=== PATIENT | female | born 1950 | race African-American/Black ===

== ENCOUNTER 2016-05-14 03:29 | Emergency (ER) | payer OTHER ==
[~2016-05-14] VITALS: Ht 177.8 cm; Wt 104.3 kg
[~2016-05-14 03:29] MED LIST: ALBUAER3 IN; CHLO25TA22 PO; CHOL20007 PO; CLON0.1T PO; CLOP75TA28 PO; HYDR-2652 PO; METO-169 PO; OMEP20CA5 PO; PRA25T PO; PRED-188 PO; TIOTCAP IN
[2016-05-14] MEDS ORDERED: OXYMETAZOLINE HCL 0.05 % NASAL SPRAY 15ML ONE ×2 (06:06→06:30)
[2016-05-14] MEDS ORDERED: hydrALAZINE HCL 20 MG/ML VL IV ONE (06:30)
[2016-05-14 06:49] LABS: Basophils # (auto) 0 uL; Basophils % (auto) 0.7 % (0.0-2.0); Eosinophils # (auto) 0.2 uL; Eosinophils % (auto) 2.7 % (0.0-7.0); Hemoglobin 15.4 g/dL (12.2-16.2); Lymphocytes # (auto) 2.3 uL; Lymphocytes % (auto) 39.1 % (10.0-50.0); Mean Corpuscular Volume 87.4 fL (80.0-100.0); Mean Platelet Volume 11.1 fL (7.4-10.4); Monocytes # (auto) 0.5 uL; Monocytes % (auto) 7.7 % (0.0-12.0); Neutrophils # (auto) 2.9 uL; Neutrophils % (auto) 49.8 % (37.0-80.0); Platelet Count (auto) 155 10^3/uL (140-450); Red Cell Distribution Width 16.9 % (11.6-16.0); SUSPECT VIEW TRANSMISSION; White Blood Cell 5.9 10^3/uL (4.4-10.8)
[2016-05-14 07:08] LABS: Albumin 3.6 g/dL (3.4-5.0); BUN/Creatinine Ratio 19.1; Calcium 8.9 mg/dL (8.5-10.1); Potassium 4.1 mmol/L (3.5-5.1)
[2016-05-14 07:11] LABS: Bilirubin, Total 0.4 mg/dL (0.2-1.0); Total Protein 7.9 g/dL (6.4-8.2)
[2016-05-14 07:22] LABS: INR 1.1 (0.9-1.15); Prothrombin Time 11.3 sec (9.37-12.3)
[2016-05-14] MEDS ORDERED: cloNIDine HCL 0.1 MG TAB PO ONE (07:30)
[2016-05-14 07:36] VITALS: BP 180/99
== END 2016-05-14 08:00 | disposition home or self-care (01) ==
LOC: ER 03:37
DX: R04.0 Epistaxis (principal); I10 Essential (primary) hypertension; I48.91 Unspecified atrial fibrillation; J44.9 Chronic obstructive pulmonary disease, unspecified; Z79.899 Other long term (current) drug therapy; Z79.01 Long term (current) use of anticoagulants; F17.210 Nicotine dependence, cigarettes, uncomplicated
CPT/HCPCS: 36415; 80053; 85025; 85049; 85610; 96374; 99284; J0360

== ENCOUNTER 2016-05-14 20:43 | Inpatient (IN) | payer OTHER ==
[~2016-05-14] VITALS: Ht 177.8 cm; Wt 110.0 kg
[2016-05-14] MEDS ORDERED: cloNIDine HCL 0.1 MG TAB PO ONE (21:30)
[2016-05-14] MEDS ORDERED: ONDANSETRON HCL 4 MG/2 ML VIAL IV ONE (21:30)
[2016-05-14] MEDS ORDERED: MORPHINE SULF INJ 2 MG/ML SYRINGE 1ML IV ONE (21:30)
[2016-05-14 21:31] LABS: Basophils # (auto) 0.1 uL; Basophils % (auto) 1.2 % (0.0-2.0); Eosinophils # (auto) 0.1 uL; Eosinophils % (auto) 2.5 % (0.0-7.0); Hemoglobin 15.4 g/dL (12.2-16.2); Lymphocytes # (auto) 1.7 uL; Lymphocytes % (auto) 32.7 % (10.0-50.0); Mean Corpuscular Hemoglobin 27.8 pg (28.0-32.0); Mean Corpuscular Hgb Conc. 31.5 g/dL (32.0-36.0); Mean Corpuscular Volume 88.3 fL (80.0-100.0); Mean Platelet Volume 10.9 fL (7.4-10.4); Monocytes # (auto) 0.4 uL; Monocytes % (auto) 8.1 % (0.0-12.0); Neutrophils # (auto) 2.8 uL; Neutrophils % (auto) 55.5 % (37.0-80.0); Platelet Count (auto) 158 10^3/uL (140-450); Red Cell Distribution Width 16.8 % (11.6-16.0); SUSPECT VIEW TRANSMISSION; White Blood Cell 5.1 10^3/uL (4.4-10.8)
[2016-05-14 21:49] LABS: Albumin 3.4 g/dL (3.4-5.0); BUN/Creatinine Ratio 19.5; Calcium 8.7 mg/dL (8.5-10.1); Potassium 3.8 mmol/L (3.5-5.1)
[2016-05-14 21:52] LABS: Bilirubin, Total 0.3 mg/dL (0.2-1.0); Total Protein 7.8 g/dL (6.4-8.2)
[2016-05-14 22:05] LABS: INR 1.1 (0.9-1.15); Prothrombin Time 11.3 sec (9.37-12.3)
[2016-05-14] MEDS ORDERED: MORPHINE SULF INJ 2 MG/ML SYRINGE 1ML IV PRN (22:30)
[2016-05-14] MEDS ORDERED: NITROGLYCERIN 0.4 MG SL TAB SL PRN (22:30)
[2016-05-14] MEDS ORDERED: hydrALAZINE HCL 20 MG/ML VL IV PRN (22:30)
[2016-05-15] VITALS (7 sets, daily range): BP systolic 102–187; BP diastolic 65–99
[2016-05-15 05:49] LABS: Basophils # (auto) 0 uL; Basophils % (auto) 0.8 % (0.0-2.0); Eosinophils # (auto) 0.2 uL; Eosinophils % (auto) 3.4 % (0.0-7.0); Hematocrit 46.2 % (36.0-46.0); Hemoglobin 14.7 g/dL (12.2-16.2); Lymphocytes # (auto) 1.6 uL; Lymphocytes % (auto) 31.7 % (10.0-50.0); Mean Corpuscular Hemoglobin 27.8 pg (28.0-32.0); Mean Corpuscular Hgb Conc. 31.8 g/dL (32.0-36.0); Mean Corpuscular Volume 87.5 fL (80.0-100.0); Mean Platelet Volume 11.7 fL (7.4-10.4); Monocytes # (auto) 0.4 uL; Monocytes % (auto) 8.7 % (0.0-12.0); Neutrophils # (auto) 2.8 uL; Neutrophils % (auto) 55.4 % (37.0-80.0); Platelet Count (auto) 155 10^3/uL (140-450); Red Cell Distribution Width 16.8 % (11.6-16.0); SUSPECT VIEW TRANSMISSION; White Blood Cell 5.1 10^3/uL (4.4-10.8)
[2016-05-15] MEDS ORDERED: PATIENTS OWN MEDICATION (Albuterol Sulfate (Ventolin Mdi) 90 MCG) IN SCH ×2 (06:00)
[2016-05-15 06:18] LABS: Albumin 3.2 g/dL (3.4-5.0); BUN/Creatinine Ratio 20.7; Calcium 8.6 mg/dL (8.5-10.1); Potassium 4.1 mmol/L (3.5-5.1)
[2016-05-15 06:20] LABS: Bilirubin, Total 0.5 mg/dL (0.2-1.0); Total Protein 6.9 g/dL (6.4-8.2)
[2016-05-15] MEDS ORDERED: PATIENTS OWN MEDICATION (Tiotropium Bromide Monohydrate (Spiriva Handihaler) 18 MCG) IN SCH (10:00)
[2016-05-15] MEDS ORDERED: OMEPRAZOLE 20MG/10ML ORAL SUSP PO SCH (10:00)
[2016-05-15] MEDS: PANTOPRAZOLE 40 MG TAB PO SCH (10:03)
[2016-05-15] MEDS: cloNIDine HCL 0.1 MG TAB PO SCH ×2 (10:03→22:33)
[2016-05-15] MEDS: METOPROLOL SUCCINATE XL 50 MG TAB PO SCH (10:04)
[2016-05-15] MEDS: ALBUTEROL SULF 2.5 MG/0.5ML(0.5%) NEB SOLN NEB SCH ×3 (11:23→20:07)
[2016-05-15] MEDS: IPRATROPIUM BROM 0.5 MG/2.5ML INH SOL NEB SCH ×3 (11:23→20:07)
[2016-05-15] MEDS ORDERED: IPRATROPIUM BROM 0.5 MG/2.5ML INH SOL NEB SCH (12:00)
[2016-05-15] MEDS ORDERED: ALBUTEROL SULF 2.5 MG/0.5ML(0.5%) NEB SOLN NEB SCH (12:00)
[2016-05-15] MEDS: PRAMIPEXOLE DIHYDROCHLORIDE MO 0.25 MG TAB PO SCH (15:02)
[2016-05-15] MEDS: hydrALAZINE HCL 20 MG/ML VL IV PRN (18:26)
[2016-05-16] MEDS ORDERED: hydrALAZINE HCL 20 MG/ML VL IV ONE
[2016-05-16] MEDS: IPRATROPIUM BROM 0.5 MG/2.5ML INH SOL NEB SCH ×3 (01:06→13:30)
[2016-05-16] MEDS: ALBUTEROL SULF 2.5 MG/0.5ML(0.5%) NEB SOLN NEB SCH ×3 (01:06→13:30)
[2016-05-16] MEDS ORDERED: MORPHINE SULF INJ 2 MG/ML SYRINGE 1ML IV PRN ×2 (01:15)
[2016-05-16] MEDS ORDERED: NITROGLYCERIN 0.4 MG SL TAB SL PRN ×2 (01:15)
[2016-05-16 02:50] VITALS: BP 187/99
[2016-05-16 05:41] LABS: Basophils # (auto) 0 uL; Basophils % (auto) 0.3 % (0.0-2.0); Eosinophils # (auto) 0.2 uL; Eosinophils % (auto) 2.2 % (0.0-7.0); Hematocrit 47.3 % (36.0-46.0); Hemoglobin 14.9 g/dL (12.2-16.2); Lymphocytes # (auto) 1.8 uL; Lymphocytes % (auto) 25.3 % (10.0-50.0); Mean Corpuscular Hemoglobin 28.1 pg (28.0-32.0); Mean Corpuscular Hgb Conc. 31.5 g/dL (32.0-36.0); Mean Corpuscular Volume 89.3 fL (80.0-100.0); Mean Platelet Volume 12.2 fL (7.4-10.4); Monocytes # (auto) 0.4 uL; Neutrophils # (auto) 4.8 uL; Neutrophils % (auto) 67.2 % (37.0-80.0); Platelet Count (auto) 150 10^3/uL (140-450); Red Cell Distribution Width 17.2 % (11.6-16.0); SUSPECT VIEW TRANSMISSION; White Blood Cell 7.1 10^3/uL (4.4-10.8)
[2016-05-16 05:47] VITALS: BP 185/102
[2016-05-16] MEDS: hydrALAZINE HCL 20 MG/ML VL IV PRN (05:48)
[2016-05-16] MEDS ORDERED: SODIUM CHLOR 0.9% PF (SALINE LOCK) 10ML VIAL IV SCH (06:00)
[2016-05-16 06:22] LABS: Potassium 4.5 mmol/L (3.5-5.1)
[2016-05-16 06:29] LABS: Albumin 3.1 g/dL (3.4-5.0); Bilirubin, Total 0.5 mg/dL (0.2-1.0); Calcium 8.3 mg/dL (8.5-10.1); Total Protein 7.2 g/dL (6.4-8.2)
[2016-05-16 09:00] VITALS: BP 161/82
[2016-05-16] MEDS: PRAMIPEXOLE DIHYDROCHLORIDE MO 0.25 MG TAB PO SCH (09:09)
[2016-05-16] MEDS: PANTOPRAZOLE 40 MG TAB PO SCH (09:09)
[2016-05-16] MEDS: cloNIDine HCL 0.1 MG TAB PO SCH (09:10)
[2016-05-16] MEDS: METOPROLOL SUCCINATE XL 50 MG TAB PO SCH (09:10)
[2016-05-16] MEDS ORDERED: ONDANSETRON HCL 4 MG/2 ML VIAL IV PRN (09:30)
[2016-05-16] MEDS ORDERED: ACETAMINOPHEN 500 MG TAB PO PRN (09:30)
[2016-05-16] MEDS ORDERED: HYDROcodone-ACET 5/325MG TAB PO PRN (09:45)
[2016-05-16] MEDS ORDERED: MORPHINE SULFATE 4 MG/ML SYRG IV PRN (09:45)
[2016-05-16 13:00] VITALS: BP 137/80
[2016-05-16 13:33] VITALS: BP 135/77
[2016-05-16 16:31] VITALS: BP 149/90
== END 2016-05-16 16:45 | disposition home or self-care (01) | DRG 305 ==
LOC: ER 20:43 → TELE-WESTW 20:44 → WEST WING 05-15 11:35 → TELE-WESTW 05-16 01:35
PROVIDERS: ADMIT Internal Medicine; ATTEND Internal Medicine
DX: I16.0 Hypertensive urgency (principal); N18.4 Chronic kidney disease, stage 4 (severe); J96.11 Chronic respiratory failure with hypoxia; I48.91 Unspecified atrial fibrillation; J44.9 Chronic obstructive pulmonary disease, unspecified; I50.9 Heart failure, unspecified; F17.210 Nicotine dependence, cigarettes, uncomplicated; I13.0 Hypertensive heart and chronic kidney disease with heart failure and stage 1 through stage 4 chronic kidney disease, or unspecified chronic kidney disease; R04.0 Epistaxis; G25.81 Restless legs syndrome; Z91.19 Patient's noncompliance with other medical treatment and regimen; M25.532 Pain in left wrist; I71.2 Thoracic aortic aneurysm, without rupture; K21.9 Gastro-esophageal reflux disease without esophagitis; Z82.3 Family history of stroke; Z82.49 Family history of ischemic heart disease and other diseases of the circulatory system; Z83.3 Family history of diabetes mellitus; Z80.42 Family history of malignant neoplasm of prostate; Z86.73 Personal history of transient ischemic attack (TIA), and cerebral infarction without residual deficits; I25.2 Old myocardial infarction; Z95.0 Presence of cardiac pacemaker; Z88.6 Allergy status to analgesic agent; Z91.14 Patient's other noncompliance with medication regimen; Z79.899 Other long term (current) drug therapy
CPT/HCPCS: 36415; 71010; 73110; 80053; 84484; 85025; 85049; 85610; 85730; 93005; 94640; 94761; 96374; 96375; J2405

== ENCOUNTER 2016-11-27 10:56 | Inpatient (IN) | payer OTHER ==
[~2016-11-27] VITALS: Ht 177.8 cm; Wt 114.0 kg
[2016-11-27] VITALS (15 sets, daily range): BP systolic 110–148; BP diastolic 55–90
[~2016-11-27 10:56] MED LIST changes: -OMEP20CA5 PO; +OMEP20CA74 PO
[2016-11-27] MEDS ORDERED: SODIUM CHLORIDE 0.9% 1,000 ML IV ONE (11:06)
[2016-11-27] MEDS ORDERED: ASPirin 81 mg TAB PO ONE (11:15)
[2016-11-27 11:28] LABS: Basophils # (auto) 0 uL; Basophils % (auto) 0.6 % (0.0-2.0); CONDITION Y; Eosinophils # (auto) 0.2 uL; Hematocrit 47.3 % (36.0-46.0); Hemoglobin 15.6 g/dL (12.2-16.2); Lymphocytes # (auto) 2.1 uL; Lymphocytes % (auto) 35.6 % (10.0-50.0); Mean Corpuscular Volume 88.1 fL (80.0-100.0); Mean Platelet Volume 11.4 fL (7.4-10.4); Monocytes # (auto) 0.3 uL; Monocytes % (auto) 5.4 % (0.0-12.0); Neutrophils # (auto) 3.2 uL; Neutrophils % (auto) 55.4 % (37.0-80.0); Platelet Count (auto) 156 10^3/uL (140-450); Red Cell Distribution Width 16.5 % (11.6-16.0); White Blood Cell 5.8 10^3/uL (4.4-10.8)
[2016-11-27] MEDS ORDERED: MORPHINE SULFATE 4 MG/ML SYRG IV ONE (11:30)
[2016-11-27] MEDS ORDERED: LORazepam 2MG/ML-1ML VIAL IV ONE (11:30)
[2016-11-27] MEDS ORDERED: ONDANSETRON HCL 4 MG/2 ML VIAL IV ONE (11:30)
[2016-11-27 11:40] LABS: INR 1.24 (0.9-1.15); Partial Thromboplastin Time 54.1 sec (22.64-33.71)
[2016-11-27 11:44] LABS: Prothrombin Time 13.6 sec (9.37-12.3)
[2016-11-27 11:53] LABS: Albumin 3.3 g/dL (3.4-5.0); BUN/Creatinine Ratio 14.1; Bilirubin, Total 0.3 mg/dL (0.2-1.0); Calcium 8.3 mg/dL (8.5-10.1); Potassium 4.2 mmol/L (3.5-5.1); Total Protein 7.7 g/dL (6.4-8.2)
[2016-11-27] MEDS ORDERED: METOPROLOL TARTRATE 25 MG TAB ONE (12:16)
[2016-11-27] MEDS ORDERED: METOPROLOL TARTRATE 25 MG TAB PO ONE (12:30)
[2016-11-27] MEDS ORDERED: NIFE90TA30 PO (12:36)
[2016-11-27] MEDS ORDERED: DABI75CA3 PO (12:36)
[2016-11-27] MEDS ORDERED: AMIO200T33 PO (12:37)
[2016-11-27] MEDS ORDERED: NITROGLYCERIN 0.4 MG SL TAB SL PRN (13:00)
[2016-11-27] MEDS ORDERED: MORPHINE SULF INJ 2 MG/ML SYRINGE 1ML IV PRN (13:00)
[2016-11-27] MEDS ORDERED: AMIODARONE HCL 150 MG in D5W 5% 100 ML IV ONE (13:00)
[2016-11-27] MEDS ORDERED: AMIODARONE HCL 900 MG in DEXTROSE 500 ML IV SCH ×2 (13:03→19:03)
[2016-11-27] MEDS ORDERED: ENOXAPARIN SOD 30 MG/0.3 ML SYRINGE SC SCH (13:38)
[2016-11-27 13:40] LABS: B-Type Natriuretic Peptide 473.8 pg/mL (0-100)
[2016-11-27 13:45] LABS: Cholesterol 142 mg/dL (< 200); HDL Cholesterol 79 mg/dL (40-59); LDL Cholesterol 43 mg/dL (< 100); Triglycerides 108 mg/dL (< 150)
[2016-11-27] MEDS ORDERED: PANTOPRAZOLE 40 MG TAB PO ONE ×2 (14:45→15:00)
[2016-11-27] MEDS ORDERED: ALBUTEROL SULF 2.5 MG/0.5ML(0.5%) NEB SOLN NEB PRN (14:45)
[2016-11-27] MEDS ORDERED: METOPROLOL TARTRATE 50 MG TAB PO ONE ×2 (14:45→15:00)
[2016-11-27] MEDS ORDERED: ASPirin-EC 81 mg tab PO ONE (15:00)
[2016-11-27] MEDS ORDERED: APIXABAN 2.5 MG TAB PO ONE (15:00)
[2016-11-27] MEDS ORDERED: FUROSEMIDE 100 MG/10ML VIAL IV ONE (17:30)
[2016-11-27] MEDS ORDERED: ALBUTEROL SULF 2.5 MG/0.5ML(0.5%) NEB SOLN NEB SCH (18:00)
[2016-11-27] MEDS ORDERED: IPRATROPIUM BROM 0.5 MG/2.5ML INH SOL NEB SCH (18:00)
[2016-11-27] MEDS: IPRATROPIUM BROM 0.5 MG/2.5ML INH SOL NEB SCH (18:00)
[2016-11-27] MEDS ORDERED: PRAM0.5T PO (21:41)
[2016-11-27] MEDS ORDERED: TERA2CAP45 PO (21:41)
[2016-11-27] MEDS ORDERED: HYDR-2652 PO (21:41)
[2016-11-27] MEDS ORDERED: SPIR100T21 PO (21:41)
[2016-11-27] MEDS: APIXABAN 5 MG TAB PO SCH (21:53)
[2016-11-27] MEDS: METOPROLOL TARTRATE 50 MG TAB PO SCH (21:53)
[2016-11-27] MEDS ORDERED: ATORVASTATIN 20 MG TAB PO SCH (22:00)
[2016-11-27] MEDS ORDERED: APIXABAN 2.5 MG TAB PO SCH (22:00)
[2016-11-28] VITALS (30 sets, daily range): BP systolic 108–161; BP diastolic 52–107
[2016-11-28 04:45] LABS: Basophils # (auto) 0 uL; Basophils % (auto) 0.5 % (0.0-2.0); CONDITION Y; Eosinophils # (auto) 0.2 uL; Eosinophils % (auto) 3.5 % (0.0-7.0); Hematocrit 45.5 % (36.0-46.0); Hemoglobin 14.5 g/dL (12.2-16.2); Lymphocytes # (auto) 1.7 uL; Lymphocytes % (auto) 26.7 % (10.0-50.0); Mean Corpuscular Hemoglobin 28.6 pg (28.0-32.0); Mean Corpuscular Hgb Conc. 31.8 g/dL (32.0-36.0); Mean Corpuscular Volume 89.9 fL (80.0-100.0); Mean Platelet Volume 11.6 fL (7.4-10.4); Monocytes # (auto) 0.4 uL; Monocytes % (auto) 6.4 % (0.0-12.0); Neutrophils % (auto) 62.9 % (37.0-80.0); Platelet Count (auto) 145 10^3/uL (140-450); Red Cell Distribution Width 16.8 % (11.6-16.0); White Blood Cell 6.4 10^3/uL (4.4-10.8)
[2016-11-28] MEDS ORDERED: FUROSEMIDE 100 MG/10ML VIAL IV SCH (06:00)
[2016-11-28] MEDS: IPRATROPIUM BROM 0.5 MG/2.5ML INH SOL NEB SCH ×4 (06:10→23:54)
[2016-11-28 06:24] LABS: BUN/Creatinine Ratio 15.1; Calcium 7.7 mg/dL (8.5-10.1); Potassium 4.5 mmol/L (3.5-5.1)
[2016-11-28] MEDS: ASPirin-EC 81 mg tab PO SCH (09:58)
[2016-11-28] MEDS: AMIODARONE HCL 200 MG TAB PO SCH ×2 (09:58→21:56)
[2016-11-28] MEDS: APIXABAN 5 MG TAB PO SCH ×2 (09:58→21:56)
[2016-11-28] MEDS: METOPROLOL TARTRATE 50 MG TAB PO SCH ×2 (09:59→21:56)
[2016-11-28] MEDS: PANTOPRAZOLE 40 MG TAB PO SCH (09:59)
[2016-11-28] MEDS: FUROSEMIDE 100 MG/10ML VIAL IV SCH (18:16)
[2016-11-28] MEDS: ATORVASTATIN 20 MG TAB PO SCH (21:56)
[2016-11-29 05:05] VITALS: BP 150/82
[2016-11-29] MEDS: FUROSEMIDE 100 MG/10ML VIAL IV SCH (06:14)
[2016-11-29] MEDS: IPRATROPIUM BROM 0.5 MG/2.5ML INH SOL NEB SCH ×4 (06:51→23:41)
[2016-11-29 07:09] LABS: Potassium 4.2 mmol/L (3.5-5.1)
[2016-11-29 07:15] LABS: BUN/Creatinine Ratio 17.7; Calcium 8.5 mg/dL (8.5-10.1)
[2016-11-29 07:33] VITALS: BP 143/101
[2016-11-29] MEDS ORDERED: ADENOSINE 110 MG in GIVE UN-DILUTED 0 ML IV ONE (08:45)
[2016-11-29] MEDS ORDERED: AMINOPHYLLINE 250 MG/10 ML VL IV ONE (08:45)
[2016-11-29] MEDS: METOPROLOL TARTRATE 50 MG TAB PO SCH ×3 (10:00→21:24)
[2016-11-29] MEDS: AMIODARONE HCL 200 MG TAB PO SCH ×3 (10:00→21:23)
[2016-11-29] MEDS: ASPirin-EC 81 mg tab PO SCH ×2 (10:00→16:50)
[2016-11-29] MEDS: PANTOPRAZOLE 40 MG TAB PO SCH ×2 (10:00→16:50)
[2016-11-29] MEDS: APIXABAN 5 MG TAB PO SCH ×3 (10:00→21:21)
[2016-11-29] MEDS ORDERED: ALBUTEROL SULF 2.5 MG/0.5ML(0.5%) NEB SOLN ONE (11:17)
[2016-11-29] MEDS ORDERED: IPRATROPIUM BROM 0.5 MG/2.5ML INH SOL ONE (11:18)
[2016-11-29 16:47] VITALS: BP 165/105
[2016-11-29] MEDS: ATORVASTATIN 20 MG TAB PO SCH (21:21)
[2016-11-29] MEDS: PRAMIPEXOLE DIHYDROCHLORIDE MO 0.25 MG TAB PO SCH (21:22)
[2016-11-29] MEDS: cloNIDine HCL 0.1 MG TAB PO SCH (21:23)
[2016-11-29] MEDS: DOXAZOSIN MESYL 2 MG TAB PO SCH (21:23)
[2016-11-29 21:32] VITALS: BP 169/103
[2016-11-30] MEDS: cloNIDine HCL 0.1 MG TAB PO PRN (00:22)
[2016-11-30 05:08] VITALS: BP 135/79
[2016-11-30 05:29] LABS: BUN/Creatinine Ratio 18.2; Calcium 8.5 mg/dL (8.5-10.1); Potassium 4.1 mmol/L (3.5-5.1)
[2016-11-30] MEDS: IPRATROPIUM BROM 0.5 MG/2.5ML INH SOL NEB SCH ×3 (06:43→19:15)
[2016-11-30] MEDS: cloNIDine HCL 0.1 MG TAB PO SCH ×2 (09:03→21:53)
[2016-11-30] MEDS: AMIODARONE HCL 200 MG TAB PO SCH ×2 (09:03→21:52)
[2016-11-30] MEDS: PANTOPRAZOLE 40 MG TAB PO SCH (09:04)
[2016-11-30] MEDS: APIXABAN 5 MG TAB PO SCH ×2 (09:04→21:49)
[2016-11-30] MEDS: ASPirin-EC 81 mg tab PO SCH (09:04)
[2016-11-30] MEDS: METOPROLOL TARTRATE 50 MG TAB PO SCH ×2 (09:05→21:51)
[2016-11-30 09:25] VITALS: BP 165/111
[2016-11-30 13:00] VITALS: BP 143/91
[2016-11-30 20:00] VITALS: BP 179/97
[2016-11-30] MEDS: DOXAZOSIN MESYL 2 MG TAB PO SCH (21:49)
[2016-11-30] MEDS: ATORVASTATIN 20 MG TAB PO SCH (21:51)
[2016-11-30] MEDS: PRAMIPEXOLE DIHYDROCHLORIDE MO 0.25 MG TAB PO SCH (21:54)
[2016-11-30 22:00] VITALS: BP 179/97
[2016-12-01] VITALS (7 sets, daily range): BP systolic 140–160; BP diastolic 83–98
[2016-12-01] MEDS: IPRATROPIUM BROM 0.5 MG/2.5ML INH SOL NEB SCH ×4 (00:49→19:23)
[2016-12-01 06:51] LABS: BUN/Creatinine Ratio 21.3; Calcium 8.3 mg/dL (8.5-10.1); Potassium 4.4 mmol/L (3.5-5.1)
[2016-12-01] MEDS: cloNIDine HCL 0.1 MG TAB PO SCH ×3 (10:42→23:11)
[2016-12-01] MEDS: APIXABAN 5 MG TAB PO SCH ×2 (10:42→22:17)
[2016-12-01] MEDS: PANTOPRAZOLE 40 MG TAB PO SCH (10:42)
[2016-12-01] MEDS: ASPirin-EC 81 mg tab PO SCH (10:42)
[2016-12-01] MEDS: AMIODARONE HCL 200 MG TAB PO SCH ×2 (10:42→22:17)
[2016-12-01] MEDS: METOPROLOL TARTRATE 50 MG TAB PO SCH ×2 (10:43→22:00)
[2016-12-01] MEDS: cloNIDine HCL 0.1 MG TAB PO PRN (16:27)
[2016-12-01] MEDS ORDERED: amLODIPine BESYLATE 5 MG TAB PO ONE (18:15)
[2016-12-01] MEDS: DOXAZOSIN MESYL 2 MG TAB PO SCH (22:16)
[2016-12-01] MEDS: PRAMIPEXOLE DIHYDROCHLORIDE MO 0.25 MG TAB PO SCH (22:18)
[2016-12-01] MEDS: ATORVASTATIN 20 MG TAB PO SCH (22:18)
[2016-12-02] MEDS: cloNIDine HCL 0.1 MG TAB PO PRN ×4 (02:37→14:54)
[2016-12-02 05:00] VITALS: BP 163/99
[2016-12-02] MEDS: IPRATROPIUM BROM 0.5 MG/2.5ML INH SOL NEB SCH ×3 (06:35→20:11)
[2016-12-02 08:00] VITALS: BP 160/91
[2016-12-02 09:00] VITALS: BP 160/91
[2016-12-02] MEDS: APIXABAN 5 MG TAB PO SCH ×2 (09:26→22:00)
[2016-12-02] MEDS: cloNIDine HCL 0.1 MG TAB PO SCH ×2 (09:26→22:00)
[2016-12-02] MEDS: AMIODARONE HCL 200 MG TAB PO SCH ×2 (09:37→22:00)
[2016-12-02] MEDS: ASPirin-EC 81 mg tab PO SCH (09:37)
[2016-12-02] MEDS: amLODIPine BESYLATE 5 MG TAB PO SCH ×2 (09:38→11:02)
[2016-12-02] MEDS: PANTOPRAZOLE 40 MG TAB PO SCH (09:38)
[2016-12-02] MEDS: METOPROLOL TARTRATE 50 MG TAB PO SCH ×3 (09:38→22:00)
[2016-12-02 16:48] VITALS: BP 166/108
[2016-12-02] MEDS: hydrALAZINE HCL 25 MG TAB PO SCH (17:54)
[2016-12-02 19:30] VITALS: BP 127/84
[2016-12-02] MEDS ORDERED: IPRATROPIUM BROM 0.5 MG/2.5ML INH SOL ONE (20:05)
[2016-12-02 22:00] VITALS: BP 157/91
[2016-12-02] MEDS: DOXAZOSIN MESYL 2 MG TAB PO SCH (22:00)
[2016-12-02] MEDS: PRAMIPEXOLE DIHYDROCHLORIDE MO 0.25 MG TAB PO SCH (22:00)
[2016-12-02] MEDS: ATORVASTATIN 20 MG TAB PO SCH (22:00)
[2016-12-03] VITALS (14 sets, daily range): BP systolic 129–187; BP diastolic 84–127
[2016-12-03] MEDS: cloNIDine HCL 0.1 MG TAB PO PRN ×2 (01:39→10:38)
[2016-12-03] MEDS: hydrALAZINE HCL 25 MG TAB PO SCH ×5 (06:10→23:53)
[2016-12-03] MEDS: cloNIDine HCL 0.1 MG TAB PO SCH ×2 (06:10→21:42)
[2016-12-03 06:29] LABS: Basophils # (auto) 0 uL; Basophils % (auto) 0.6 % (0.0-2.0); CONDITION Y; Eosinophils # (auto) 0.3 uL; Eosinophils % (auto) 5.3 % (0.0-7.0); Hematocrit 46.2 % (36.0-46.0); Hemoglobin 15.3 g/dL (12.2-16.2); Lymphocytes # (auto) 2.1 uL; Lymphocytes % (auto) 42.2 % (10.0-50.0); Mean Corpuscular Hemoglobin 29.1 pg (28.0-32.0); Mean Corpuscular Hgb Conc. 33.2 g/dL (32.0-36.0); Mean Corpuscular Volume 87.6 fL (80.0-100.0); Mean Platelet Volume 11.8 fL (7.4-10.4); Monocytes # (auto) 0.4 uL; Monocytes % (auto) 7.4 % (0.0-12.0); Neutrophils # (auto) 2.2 uL; Neutrophils % (auto) 44.5 % (37.0-80.0); Platelet Count (auto) 161 10^3/uL (140-450); Red Cell Distribution Width 16.3 % (11.6-16.0); White Blood Cell 4.9 10^3/uL (4.4-10.8)
[2016-12-03] MEDS: IPRATROPIUM BROM 0.5 MG/2.5ML INH SOL NEB SCH ×3 (06:30→11:35)
[2016-12-03 06:38] LABS: INR 1.05 (0.9-1.15); Prothrombin Time 11.4 sec (9.37-12.3)
[2016-12-03 06:51] LABS: Potassium 4.5 mmol/L (3.5-5.1)
[2016-12-03 06:56] LABS: BUN/Creatinine Ratio 20.4; Calcium 8.4 mg/dL (8.5-10.1); Magnesium 2.5 mg/dL (1.6-2.6)
[2016-12-03 06:59] LABS: Bilirubin, Total 0.4 mg/dL (0.2-1.0); Total Protein 7.2 g/dL (6.4-8.2)
[2016-12-03] MEDS: ASPirin-EC 81 mg tab PO SCH (09:28)
[2016-12-03] MEDS: AMIODARONE HCL 200 MG TAB PO SCH ×2 (09:28→21:42)
[2016-12-03] MEDS: APIXABAN 5 MG TAB PO SCH ×2 (09:29→21:42)
[2016-12-03] MEDS: METOPROLOL TARTRATE 50 MG TAB PO SCH ×2 (09:29→21:43)
[2016-12-03] MEDS: PANTOPRAZOLE 40 MG TAB PO SCH (09:30)
[2016-12-03] MEDS ORDERED: amLODIPine BESYLATE 5 MG TAB PO SCH (10:00)
[2016-12-03] MEDS ORDERED: NIFEdipine ER 30 MG TAB PO ONE (13:00)
[2016-12-03] MEDS ORDERED: IPRATROPIUM BROM 0.5 MG/2.5ML INH SOL ONE (19:50)
[2016-12-03] MEDS: DOXAZOSIN MESYL 2 MG TAB PO SCH (21:41)
[2016-12-03] MEDS: PRAMIPEXOLE DIHYDROCHLORIDE MO 0.25 MG TAB PO SCH ×2 (21:43→21:59)
[2016-12-03] MEDS: ATORVASTATIN 20 MG TAB PO SCH (21:43)
[2016-12-04 04:49] VITALS: BP 105/65
[2016-12-04] MEDS: hydrALAZINE HCL 25 MG TAB PO SCH ×2 (05:31→12:00)
[2016-12-04] MEDS: IPRATROPIUM BROM 0.5 MG/2.5ML INH SOL NEB SCH ×2 (06:23→11:20)
[2016-12-04 08:35] VITALS: BP 124/71
[2016-12-04 09:48] VITALS: BP 124/71
[2016-12-04] MEDS ORDERED: NIFEdipine ER 30 MG TAB PO SCH (10:00)
[2016-12-04] MEDS: METOPROLOL TARTRATE 50 MG TAB PO SCH (10:00)
[2016-12-04] MEDS: PANTOPRAZOLE 40 MG TAB PO SCH (10:34)
[2016-12-04] MEDS: ASPirin-EC 81 mg tab PO SCH (10:35)
[2016-12-04] MEDS: AMIODARONE HCL 200 MG TAB PO SCH (10:35)
[2016-12-04] MEDS: DOXAZOSIN MESYL 2 MG TAB PO SCH (10:35)
[2016-12-04] MEDS: APIXABAN 5 MG TAB PO SCH (10:36)
[2016-12-04] MEDS: cloNIDine HCL 0.1 MG TAB PO SCH (10:36)
[2016-12-04 12:49] VITALS: BP 120/87
== END 2016-12-04 18:30 | disposition home or self-care (01) | DRG 291 ==
LOC: ER 11:00 → TELE 11:01 → ICU WEST 15:56 → TELE-WESTW 11-28 15:13
PROVIDERS: ADMIT Nurse Practitioner Family; ATTEND Internal Medicine
DX: I13.0 Hypertensive heart and chronic kidney disease with heart failure and stage 1 through stage 4 chronic kidney disease, or unspecified chronic kidney disease (principal); I50.33 Acute on chronic diastolic (congestive) heart failure; N18.4 Chronic kidney disease, stage 4 (severe); J96.11 Chronic respiratory failure with hypoxia; G25.81 Restless legs syndrome; K21.9 Gastro-esophageal reflux disease without esophagitis; J44.9 Chronic obstructive pulmonary disease, unspecified; I16.0 Hypertensive urgency; I48.91 Unspecified atrial fibrillation; I25.10 Atherosclerotic heart disease of native coronary artery without angina pectoris; I25.2 Old myocardial infarction; Z82.3 Family history of stroke; Z82.49 Family history of ischemic heart disease and other diseases of the circulatory system; Z83.3 Family history of diabetes mellitus; Z86.73 Personal history of transient ischemic attack (TIA), and cerebral infarction without residual deficits; Z87.891 Personal history of nicotine dependence; Z88.8 Allergy status to other drugs, medicaments and biological substances; Z71.89 Other specified counseling; Z80.42 Family history of malignant neoplasm of prostate; Z90.89 Acquired absence of other organs; Z91.19 Patient's noncompliance with other medical treatment and regimen; Z95.0 Presence of cardiac pacemaker
CPT/HCPCS: 36415; 71010; 78452; 80048; 80053; 80061; 83036; 83735; 83880; 84443; 84484; 85025; 85379; 85610; 85730; 87081; 93005; 93017; 93306; 94640; 96361; 96365; 96375; J0153; J2405; J7060

== ENCOUNTER → 2016-12-24 | Outpatient (CLI) | payer OTHER ==
[~2016-12-24] MED LIST changes: +AMIO200T33 PO; -CLOP75TA28 PO; +DABI75CA3 PO; +NIFE90TA30 PO; -PRA25T PO; +PRAM0.5T PO; -PRED-188 PO; +SPIR100T21 PO; +TERA2CAP45 PO
== END | disposition home or self-care (01) ==
LOC: XY 09:50
PROVIDERS: ATTEND Internal Medicine
DX: N28.1 Cyst of kidney, acquired (principal); I13.0 Hypertensive heart and chronic kidney disease with heart failure and stage 1 through stage 4 chronic kidney disease, or unspecified chronic kidney disease; I50.33 Acute on chronic diastolic (congestive) heart failure; N18.4 Chronic kidney disease, stage 4 (severe)
CPT/HCPCS: 93923

== ENCOUNTER → 2017-01-17 | Outpatient (CLI) | payer OTHER ==
[2017-01-17 14:47] LABS: Basophils # (auto) 0.1 uL; Basophils % (auto) 1.2 % (0.0-2.0); Eosinophils # (auto) 0.2 uL; Eosinophils % (auto) 3.2 % (0.0-7.0); Hematocrit 50.3 % (36.0-46.0); Hemoglobin 16.6 g/dL (12.2-16.2); Lymphocytes % (auto) 39.9 % (10.0-50.0); Mean Corpuscular Hemoglobin 29.2 pg (28.0-32.0); Mean Corpuscular Volume 88.5 fL (80.0-100.0); Mean Platelet Volume 10.4 fL (6.9-10.8); Monocytes # (auto) 0.3 uL; Neutrophils # (auto) 2.4 uL; Neutrophils % (auto) 48.7 % (37.0-80.0); Nucleated Red Blood Cells % 0.1 %; Platelet Count (auto) 113 10^3/uL (140-450); Red Cell Distribution Width 16.7 % (11.8-14.3)
[2017-01-17 15:12] LABS: Albumin 3.8 g/dL (3.4-5.0); BUN/Creatinine Ratio 19.2; Calcium 8.7 mg/dL (8.5-10.1); Phosphorus 3.2 mg/dL (2.5-4.90); Potassium 4.4 mmol/L (3.5-5.1); Uric Acid 7.8 mg/dL (2.6-6.0)
[2017-01-17 15:16] LABS: Urine Bilirubin Negative (Negative); Urine Blood Negative /uL (Negative); Urine Color Yellow (Yellow); Urine Glucose Normal (Normal); Urine Ketone Negative (Negative); Urine Mucus FEW (None Seen); Urine Nitrite Negative (Negative); Urine RBC 1 /hpf (0 - 4); Urine Squamous Epithelial Cell MOD /hpf (<5); Urine pH 5.5 (5.0-8.0)
[2017-01-17 15:17] LABS: Urine Protein/Creatinine Ratio 0.35
== END | disposition home or self-care (01) ==
LOC: LAB 13:56
PROVIDERS: ATTEND Internal Medicine Nephrology
DX: E78.5 Hyperlipidemia, unspecified (principal); I13.0 Hypertensive heart and chronic kidney disease with heart failure and stage 1 through stage 4 chronic kidney disease, or unspecified chronic kidney disease; I50.33 Acute on chronic diastolic (congestive) heart failure; N18.3 Chronic kidney disease, stage 3 (moderate); D63.1 Anemia in chronic kidney disease; R80.9 Proteinuria, unspecified; M10.9 Gout, unspecified; E55.9 Vitamin D deficiency, unspecified; E21.3 Hyperparathyroidism, unspecified
CPT/HCPCS: 36415; 80061; 80069; 81001; 82306; 82570; 83970; 84156; 84550; 85025

== ENCOUNTER → 2017-02-18 | Outpatient (CLI) | payer OTHER ==
[~2017-02-18] MED LIST changes: -HYDR-2652 PO; +HYDR50TA15 PO
[2017-02-18 11:58] LABS: Basophils # (auto) 0 uL; Basophils % (auto) 0.7 % (0.0-2.0); Eosinophils # (auto) 0.2 uL; Eosinophils % (auto) 2.8 % (0.0-7.0); Hemoglobin 17.5 g/dL (12.2-16.2); Lymphocytes # (auto) 1.8 uL; Lymphocytes % (auto) 30.8 % (10.0-50.0); Mean Corpuscular Hemoglobin 29.3 pg (28.0-32.0); Mean Corpuscular Hgb Conc. 33.1 g/dL (32.0-36.0); Mean Corpuscular Volume 88.6 fL (80.0-100.0); Mean Platelet Volume 9.3 fL (6.9-10.8); Monocytes # (auto) 0.4 uL; Monocytes % (auto) 6.2 % (0.0-12.0); Neutrophils # (auto) 3.5 uL; Neutrophils % (auto) 59.5 % (37.0-80.0); Nucleated Red Blood Cells % 0.3 %; Platelet Count (auto) 144 10^3/uL (140-450); Red Cell Distribution Width 16.7 % (11.8-14.3); White Blood Cell 5.9 10^3/uL (4.4-10.8)
[2017-02-18 12:06] LABS: Urine Bilirubin Negative (Negative); Urine Blood Negative /uL (Negative); Urine Color Yellow (Yellow); Urine Glucose Normal (Normal); Urine Hyaline Cast FEW /lpf (0 - 2); Urine Ketone Negative (Negative); Urine Nitrite Negative (Negative); Urine RBC 1 /hpf (0 - 4); Urine Squamous Epithelial Cell FEW /hpf (<5); Urine Urobilinogen Normal (Negative)
[2017-02-18 12:20] LABS: Urine Protein/Creatinine Ratio 0.44
[2017-02-18 12:27] LABS: Albumin 3.8 g/dL (3.4-5.0); BUN/Creatinine Ratio 18.9; Phosphorus 3.2 mg/dL (2.5-4.90); Potassium 4.5 mmol/L (3.5-5.1); Uric Acid 8.3 mg/dL (2.6-6.0)
== END | disposition home or self-care (01) ==
LOC: LAB 11:26
PROVIDERS: ATTEND Internal Medicine Nephrology
DX: E55.9 Vitamin D deficiency, unspecified (principal); I13.0 Hypertensive heart and chronic kidney disease with heart failure and stage 1 through stage 4 chronic kidney disease, or unspecified chronic kidney disease; I50.32 Chronic diastolic (congestive) heart failure; N18.3 Chronic kidney disease, stage 3 (moderate); J44.9 Chronic obstructive pulmonary disease, unspecified; R80.9 Proteinuria, unspecified; R79.89 Other specified abnormal findings of blood chemistry
CPT/HCPCS: 36415; 80069; 81001; 82306; 82570; 83036; 83970; 84156; 84550; 85025

== ENCOUNTER 2017-02-27 09:07 | Inpatient (IN) | payer OTHER ==
[~2017-02-27] VITALS: Ht 177.8 cm; Wt 112.2 kg
[2017-02-27 10:22] LABS: Basophils # (auto) 0.1 uL; Basophils % (auto) 1.3 % (0.0-2.0); Eosinophils # (auto) 0.1 uL; Eosinophils % (auto) 2.5 % (0.0-7.0); Hematocrit 51.1 % (36.0-46.0); Hemoglobin 16.9 g/dL (12.2-16.2); Lymphocytes # (auto) 1.9 uL; Lymphocytes % (auto) 32.9 % (10.0-50.0); Mean Corpuscular Hgb Conc. 33.2 g/dL (32.0-36.0); Mean Corpuscular Volume 87.6 fL (80.0-100.0); Monocytes # (auto) 0.4 uL; Monocytes % (auto) 7.3 % (0.0-12.0); Neutrophils # (auto) 3.3 uL; Nucleated Red Blood Cells % 0.3 %; Platelet Count (auto) 134 10^3/uL (140-450); Red Blood Cells 5.84 10^6/uL (4.0-5.20); Red Cell Distribution Width 17.2 % (11.8-14.3); White Blood Cell 5.9 10^3/uL (4.4-10.8)
[2017-02-27 10:43] LABS: Alanine Aminotransferase 24 U/L (13-56); Albumin 3.8 g/dL (3.4-5.0); Anion Gap 9 (5-15); Aspartate Aminotransferase 17 U/L (15-37); BUN/Creatinine Ratio 20.5; Blood Urea Nitrogen 45 mg/dL (7-18); Calcium 8.9 mg/dL (8.5-10.1); Carbon Dioxide 20 mmol/L (21-32); Chloride 111 mmol/L (98-107); GFR African American 29 mL/min; GFR Non-African American 24 mL/min; Glucose 116 mg/dL (74-106); Potassium 4.4 mmol/L (3.5-5.1); Sodium 140 mmol/L (136-145)
[2017-02-27 10:47] LABS: Alkaline Phosphatase 94 U/L (45-117); Bilirubin, Total 0.4 mg/dL (0.2-1.0); Total Protein 8.6 g/dL (6.4-8.2)
[2017-02-27] MEDS ORDERED: TEMAZEPAM 15 MG CAP PO PRN (15:00)
[2017-02-27] MEDS ORDERED: ACETAMINOPHEN 500 MG TAB PO PRN (15:00)
[2017-02-27] MEDS ORDERED: NITROGLYCERIN 0.4 MG SL TAB SL PRN (15:00)
[2017-02-27] MEDS ORDERED: LORazepam 0.5 MG TAB PO PRN (15:00)
[2017-02-27] MEDS ORDERED: MORPHINE SULFATE 10 MG/ML INJ 1ML SDV IV PRN ×2 (15:00)
[2017-02-27] MEDS ORDERED: HYDROcodone-ACET 5/325MG TAB PO PRN (15:00)
[2017-02-27] MEDS ORDERED: PROMETHAZINE HCL 25 MG/ML 1ML IV PRN (15:00)
[2017-02-27] MEDS ORDERED: ALBUTEROL SULF 2.5 MG/0.5ML(0.5%) NEB SOLN NEB PRN (15:00)
[2017-02-27] MEDS ORDERED: PRAMIPEXOLE DIHYDROCHLORIDE MO 0.25 MG TAB PO SCH ×2 (15:30→22:00)
[2017-02-27] MEDS: TERAZOSIN HCL 1 MG CAP PO SCH ×2 (15:30→22:38)
[2017-02-27] MEDS ORDERED: DABIGATRAN 75 MG CAP PO ONE ×2 (15:45→16:00)
[2017-02-27] MEDS ORDERED: NIFEdipine ER 30 MG TAB PO ONE (15:45)
[2017-02-27] MEDS ORDERED: METOPROLOL SUCCINATE XL 50 MG TAB PO ONE (15:45)
[2017-02-27] MEDS ORDERED: PANTOPRAZOLE 40 MG TAB PO ONE (15:45)
[2017-02-27] MEDS ORDERED: AMIODARONE HCL 200 MG TAB PO ONE (15:45)
[2017-02-27] MEDS ORDERED: NITROGLYCERIN 0.2MG/HR TOPICAL PATCH TD ONE (15:45)
[2017-02-27] MEDS ORDERED: hydrALAZINE HCL 25 MG TAB PO ONE (15:45)
[2017-02-27] MEDS ORDERED: cloNIDine HCL 0.1 MG TAB PO ONE (15:45)
[2017-02-27] MEDS ORDERED: ASPirin 81 mg TAB PO ONE (15:45)
[2017-02-27] MEDS: hydrALAZINE HCL 25 MG TAB PO SCH ×2 (16:39→22:36)
[2017-02-27] MEDS: CHOLECALCIFEROL (VITD3) 1,000 UNIT TAB PO SCH (16:39)
[2017-02-27] MEDS: SPIRONOLACTONE 25 MG TAB PO SCH ×2 (16:40→22:38)
[2017-02-27 17:24] VITALS: BP 183/92
[2017-02-27] MEDS ORDERED: ALBUTEROL SULF 2.5 MG/0.5ML(0.5%) NEB SOLN NEB SCH (18:00)
[2017-02-27] MEDS ORDERED: INFLUENZA QUAD 2017-2018 0.5 ML SYRG IM ONE (18:45)
[2017-02-27] MEDS: ALBUTEROL SULF 2.5 MG/0.5ML(0.5%) NEB SOLN NEB SCH (19:05)
[2017-02-27] MEDS: IPRATROPIUM BROM 0.5 MG/2.5ML INH SOL NEB SCH (19:05)
[2017-02-27 19:09] VITALS: BP 183/92
[2017-02-27 21:30] VITALS: BP 156/91
[2017-02-27] MEDS: cloNIDine HCL 0.1 MG TAB PO SCH (22:00)
[2017-02-27] MEDS ORDERED: DABIGATRAN 75 MG CAP PO SCH (22:00)
[2017-02-27] MEDS: PRAMIPEXOLE DIHYDROCHLORIDE MO 0.25 MG TAB PO SCH (22:35)
[2017-02-27] MEDS: SODIUM CHLOR 0.9% PF (SALINE LOCK) 10ML VIAL IV SCH (22:35)
[2017-02-27] MEDS: DABIGATRAN 75 MG CAP PO SCH (22:36)
[2017-02-27] MEDS: ATORVASTATIN 20 MG TAB PO SCH (22:37)
[2017-02-28] MEDS: ALBUTEROL SULF 2.5 MG/0.5ML(0.5%) NEB SOLN NEB SCH ×4 (00:29→18:06)
[2017-02-28] MEDS: IPRATROPIUM BROM 0.5 MG/2.5ML INH SOL NEB SCH ×4 (00:29→18:06)
[2017-02-28 05:29] VITALS: BP 126/68
[2017-02-28 06:04] LABS: Basophils # (auto) 0 uL; Basophils % (auto) 0.6 % (0.0-2.0); Eosinophils # (auto) 0.2 uL; Eosinophils % (auto) 2.9 % (0.0-7.0); Hematocrit 47.6 % (36.0-46.0); Hemoglobin 15.8 g/dL (12.2-16.2); Lymphocytes # (auto) 1.6 uL; Lymphocytes % (auto) 28.1 % (10.0-50.0); Mean Corpuscular Hemoglobin 29.5 pg (28.0-32.0); Mean Corpuscular Hgb Conc. 33.2 g/dL (32.0-36.0); Mean Corpuscular Volume 88.9 fL (80.0-100.0); Monocytes # (auto) 0.4 uL; Neutrophils # (auto) 3.6 uL; Neutrophils % (auto) 61.4 % (37.0-80.0); Nucleated Red Blood Cells % 0.1 %; Platelet Count (auto) 123 10^3/uL (140-450); Red Blood Cells 5.35 10^6/uL (4.0-5.20); Red Cell Distribution Width 16.8 % (11.8-14.3); White Blood Cell 5.9 10^3/uL (4.4-10.8)
[2017-02-28 06:34] LABS: Albumin 3.4 g/dL (3.4-5.0); BUN/Creatinine Ratio 21.2; Bilirubin, Total 0.4 mg/dL (0.2-1.0); Calcium 8.8 mg/dL (8.5-10.1); Potassium 4.5 mmol/L (3.5-5.1); Total Protein 7.6 g/dL (6.4-8.2)
[2017-02-28] MEDS: SODIUM CHLOR 0.9% PF (SALINE LOCK) 10ML VIAL IV SCH ×3 (07:20→21:14)
[2017-02-28 09:00] VITALS: BP 134/98
[2017-02-28] MEDS ORDERED: NITROGLYCERIN 0.2MG/HR TOPICAL PATCH TD SCH (10:00)
[2017-02-28] MEDS: PANTOPRAZOLE 40 MG TAB PO SCH (10:00)
[2017-02-28] MEDS: SPIRONOLACTONE 25 MG TAB PO SCH ×3 (10:00→21:16)
[2017-02-28] MEDS: ASPirin 81 mg TAB PO SCH (10:00)
[2017-02-28] MEDS: METOPROLOL SUCCINATE XL 50 MG TAB PO SCH ×2 (10:00→14:27)
[2017-02-28] MEDS: cloNIDine HCL 0.1 MG TAB PO SCH ×2 (10:00→21:16)
[2017-02-28] MEDS: AMIODARONE HCL 200 MG TAB PO SCH (10:17)
[2017-02-28] MEDS: hydrALAZINE HCL 25 MG TAB PO SCH ×2 (10:17→21:15)
[2017-02-28] MEDS: NIFEdipine ER 30 MG TAB PO SCH (10:18)
[2017-02-28] MEDS: CHOLECALCIFEROL (VITD3) 1,000 UNIT TAB PO SCH (10:18)
[2017-02-28] MEDS: DABIGATRAN 75 MG CAP PO SCH ×2 (10:23→21:16)
[2017-02-28 13:00] VITALS: BP 145/103
[2017-02-28 17:00] VITALS: BP 131/68
[2017-02-28] MEDS: TERAZOSIN HCL 1 MG CAP PO SCH (21:15)
[2017-02-28] MEDS: ATORVASTATIN 20 MG TAB PO SCH (21:16)
[2017-02-28] MEDS: PRAMIPEXOLE DIHYDROCHLORIDE MO 0.25 MG TAB PO SCH (21:16)
[2017-02-28 22:24] VITALS: BP 116/79
[2017-03-01 04:49] VITALS: BP 105/58
[2017-03-01] MEDS: SODIUM CHLOR 0.9% PF (SALINE LOCK) 10ML VIAL IV SCH (05:46)
[2017-03-01] MEDS: ALBUTEROL SULF 2.5 MG/0.5ML(0.5%) NEB SOLN NEB SCH ×3 (05:50→11:27)
[2017-03-01] MEDS: IPRATROPIUM BROM 0.5 MG/2.5ML INH SOL NEB SCH ×3 (05:50→11:27)
[2017-03-01 05:53] LABS: BUN/Creatinine Ratio 20.7; Calcium 8.5 mg/dL (8.5-10.1); Potassium 4.8 mmol/L (3.5-5.1)
[2017-03-01 09:00] VITALS: BP 98/60
[2017-03-01] MEDS: hydrALAZINE HCL 25 MG TAB PO SCH (10:00)
[2017-03-01] MEDS: ASPirin 81 mg TAB PO SCH (10:00)
[2017-03-01] MEDS: cloNIDine HCL 0.1 MG TAB PO SCH (10:00)
[2017-03-01] MEDS: NIFEdipine ER 30 MG TAB PO SCH (10:00)
[2017-03-01] MEDS: DABIGATRAN 75 MG CAP PO SCH (10:09)
[2017-03-01] MEDS: CHOLECALCIFEROL (VITD3) 1,000 UNIT TAB PO SCH (10:09)
[2017-03-01] MEDS: PANTOPRAZOLE 40 MG TAB PO SCH (10:09)
[2017-03-01] MEDS: AMIODARONE HCL 200 MG TAB PO SCH (10:10)
[2017-03-01 13:04] VITALS: BP 98/60
== END 2017-03-01 13:45 | disposition home or self-care (01) | DRG 313 ==
LOC: ER 09:07 → TELE 09:08 → TELE-WESTW 17:44
PROVIDERS: ADMIT Internal Medicine; ATTEND Internal Medicine
DX: R07.89 Other chest pain (principal); I25.2 Old myocardial infarction; D68.69 Other thrombophilia; N18.4 Chronic kidney disease, stage 4 (severe); E11.22 Type 2 diabetes mellitus with diabetic chronic kidney disease; I48.0 Paroxysmal atrial fibrillation; I50.32 Chronic diastolic (congestive) heart failure; I13.0 Hypertensive heart and chronic kidney disease with heart failure and stage 1 through stage 4 chronic kidney disease, or unspecified chronic kidney disease; G25.81 Restless legs syndrome; E66.9 Obesity, unspecified; J44.9 Chronic obstructive pulmonary disease, unspecified; I49.3 Ventricular premature depolarization; Z72.89 Other problems related to lifestyle; Z79.01 Long term (current) use of anticoagulants; Z82.3 Family history of stroke; Z82.49 Family history of ischemic heart disease and other diseases of the circulatory system; Z83.3 Family history of diabetes mellitus; Z86.73 Personal history of transient ischemic attack (TIA), and cerebral infarction without residual deficits; Z95.0 Presence of cardiac pacemaker; Z90.89 Acquired absence of other organs; Z68.35 Body mass index [BMI] 35.0-35.9, adult; Z88.8 Allergy status to other drugs, medicaments and biological substances; Z23 Encounter for immunization
CPT/HCPCS: 36415; 71020; 78582; 80048; 80053; 80061; 82550; 84484; 85025; 85379; 85652; 86141; 93005; 94640

== ENCOUNTER → 2017-05-06 | Outpatient (CLI) | payer OTHER ==
[~2017-05-06] MED LIST changes: +ATOR20TA50 PO; -CLON0.1T PO; +NIT04P TD; -SPIR100T21 PO; -TERA2CAP45 PO; -TIOTCAP IN
[2017-05-06 16:07] LABS: Urine Bacteria NONE SEEN /hpf (None Seen); Urine Blood Negative /uL (Negative); Urine Specific Gravity 1.022 (1.001-1.035); Urine WBC 1 /hpf (0 - 5)
[2017-05-06 16:09] LABS: Basophils # (auto) 0.1 uL; Basophils % (auto) 0.9 % (0.0-2.0); Eosinophils # (auto) 0.2 uL; Eosinophils % (auto) 2.9 % (0.0-7.0); Hematocrit 47.4 % (36.0-46.0); Hemoglobin 15.3 g/dL (12.2-16.2); Lymphocytes # (auto) 2.2 uL; Lymphocytes % (auto) 29.8 % (10.0-50.0); Mean Corpuscular Hemoglobin 28.8 pg (28.0-32.0); Mean Corpuscular Hgb Conc. 32.2 g/dL (32.0-36.0); Mean Corpuscular Volume 89.5 fL (80.0-100.0); Monocytes # (auto) 0.6 uL; Monocytes % (auto) 8.6 % (0.0-12.0); Neutrophils # (auto) 4.2 uL; Neutrophils % (auto) 57.8 % (37.0-80.0); Nucleated Red Blood Cells % 0.3 %; Platelet Count (auto) 171 10^3/uL (140-450); Red Blood Cells 5.29 10^6/uL (4.0-5.20); Red Cell Distribution Width 16.8 % (11.8-14.3); White Blood Cell 7.3 10^3/uL (4.4-10.8)
[2017-05-06 16:17] LABS: Albumin 3.4 g/dL (3.4-5.0); BUN/Creatinine Ratio 17.5; Calcium 8.2 mg/dL (8.5-10.1); Phosphorus 3.1 mg/dL (2.5-4.90); Potassium 4.3 mmol/L (3.5-5.1); Uric Acid 8.5 mg/dL (2.6-6.0)
[2017-05-06 16:20] LABS: Protein, Urine 261.3 mg/dL (0.0-11.9)
== END | disposition home or self-care (01) ==
LOC: LAB 15:23
PROVIDERS: ATTEND Internal Medicine Nephrology
DX: I13.0 Hypertensive heart and chronic kidney disease with heart failure and stage 1 through stage 4 chronic kidney disease, or unspecified chronic kidney disease (principal); N18.4 Chronic kidney disease, stage 4 (severe); I50.32 Chronic diastolic (congestive) heart failure; D63.1 Anemia in chronic kidney disease; E21.3 Hyperparathyroidism, unspecified; E78.5 Hyperlipidemia, unspecified; E55.9 Vitamin D deficiency, unspecified; M10.9 Gout, unspecified; R80.9 Proteinuria, unspecified
CPT/HCPCS: 36415; 80069; 81001; 82306; 82570; 83970; 84156; 84550; 85025

== ENCOUNTER 2017-06-08 08:52 | Inpatient (IN) | payer OTHER ==
[~2017-06-08] VITALS: Ht 177.8 cm; Wt 120.3 kg
[~2017-06-08 08:52] MED LIST changes: -ATOR20TA50 PO; -NIT04P TD
[2017-06-08 09:26] LABS: Basophils # (auto) 0.1 uL; Basophils % (auto) 1.5 % (0.0-2.0); Eosinophils # (auto) 0.4 uL; Eosinophils % (auto) 5.1 % (0.0-7.0); Hematocrit 48.6 % (36.0-46.0); Hemoglobin 15.5 g/dL (12.2-16.2); Lymphocytes # (auto) 1.6 uL; Lymphocytes % (auto) 22.6 % (10.0-50.0); Mean Corpuscular Hemoglobin 28.7 pg (28.0-32.0); Mean Corpuscular Hgb Conc. 31.9 g/dL (32.0-36.0); Monocytes # (auto) 0.7 uL; Monocytes % (auto) 9.2 % (0.0-12.0); Neutrophils # (auto) 4.5 uL; Neutrophils % (auto) 61.6 % (37.0-80.0); Nucleated Red Blood Cells % 0.2 %; Platelet Count (auto) 139 10^3/uL (140-450); Red Cell Distribution Width 16.7 % (11.8-14.3); White Blood Cell 7.3 10^3/uL (4.4-10.8)
[2017-06-08 09:43] LABS: Albumin 3.3 g/dL (3.4-5.0); Calcium 9.1 mg/dL (8.5-10.1); Magnesium 2.2 mg/dL (1.6-2.6); Potassium 4.6 mmol/L (3.5-5.1)
[2017-06-08 09:47] LABS: BUN/Creatinine Ratio 16.6; Bilirubin, Total 0.6 mg/dL (0.2-1.0); Total Protein 7.6 g/dL (6.4-8.2)
[2017-06-08] MEDS ORDERED: SODIUM CHLORIDE 0.9% 1,000 ML IV ONE (10:24)
[2017-06-08 11:04] LABS: INR 1.23 (0.9-1.15); Partial Thromboplastin Time 59.6 sec (22.64-33.71); Prothrombin Time 13.4 sec (9.37-12.3)
[2017-06-08 12:27] LABS: Urine Bacteria NONE SEEN /hpf (None Seen); Urine Blood Negative /uL (Negative); Urine Specific Gravity 1.012 (1.001-1.035); Urine WBC 1 /hpf (0 - 5)
[2017-06-08] MEDS ORDERED: ENOXAPARIN SOD 80 MG/0.8ML SYRINGE SC ONE (13:00)
[2017-06-08] MEDS ORDERED: LACTULOSE 20Gm/30ML SOLN PO PRN (14:15)
[2017-06-08] MEDS ORDERED: HYDROcodone-ACET 5/325MG TAB PO PRN (14:15)
[2017-06-08] MEDS ORDERED: TEMAZEPAM 15 MG CAP PO PRN (14:15)
[2017-06-08] MEDS ORDERED: PROMETHAZINE HCL 25 MG/ML 1ML IV PRN (14:15)
[2017-06-08] MEDS ORDERED: LORazepam 0.5 MG TAB PO PRN (14:15)
[2017-06-08] MEDS ORDERED: MORPHINE SULFATE 4 MG/ML SYR/VIAL IV PRN (14:15)
[2017-06-08] MEDS ORDERED: cloNIDine HCL 0.1 MG TAB PO ONE (14:15)
[2017-06-08] MEDS ORDERED: NITROGLYCERIN 0.4 MG SL TAB SL PRN (14:15)
[2017-06-08] MEDS ORDERED: hydrALAZINE HCL 20 MG/ML VL IV ONE (14:15)
[2017-06-08] MEDS ORDERED: ASPirin 81 mg TAB PO ONE (14:45)
[2017-06-08] MEDS ORDERED: AMIODARONE HCL 200 MG TAB PO ONE (14:45)
[2017-06-08] MEDS ORDERED: METOPROLOL SUCCINATE XL 50 MG TAB PO ONE (14:45)
[2017-06-08] MEDS: NITROGLYCERIN 0.2MG/HR TOPICAL PATCH TD SCH (15:54)
[2017-06-08] MEDS: FUROSEMIDE 40 MG/4 ML VIAL IV SCH (15:54)
[2017-06-08] MEDS: NITROGLYCERIN 50MG/250ML 250 ML IV SCH (15:55)
[2017-06-08] MEDS: ACETAMINOPHEN 500 MG TAB PO PRN (16:23)
[2017-06-08] MEDS: MORPHINE SULFATE 4 MG/ML SYR/VIAL IV PRN (17:40)
[2017-06-08] MEDS: SODIUM CHLOR 0.9% PF (SALINE LOCK) 10ML VIAL IV SCH (21:18)
[2017-06-08] MEDS: DABIGATRAN 75 MG CAP PO SCH (22:00)
[2017-06-08] MEDS ORDERED: PRAMIPEXOLE DIHYDROCHLORIDE 0.5 MG PO SCH (22:00)
[2017-06-08] MEDS ORDERED: hydrALAZINE HCL 25 MG TAB PO SCH (22:00)
[2017-06-08] MEDS ORDERED: PATIENTS OWN MEDICATION (Hydralazine Hcl 1 TAB) PO SCH (22:00)
[2017-06-08] MEDS: ATORVASTATIN 20 MG TAB PO SCH (22:10)
[2017-06-08] MEDS: PRAMIPEXOLE DIHYDROCHLORIDE MO 0.25 MG TAB PO SCH (22:10)
[2017-06-09] VITALS (20 sets, daily range): BP systolic 119–161; BP diastolic 60–98
[2017-06-09] MEDS: MORPHINE SULFATE 4 MG/ML SYR/VIAL IV PRN ×3 (05:59→20:42)
[2017-06-09] MEDS: SODIUM CHLOR 0.9% PF (SALINE LOCK) 10ML VIAL IV SCH ×3 (05:59→21:42)
[2017-06-09 06:03] LABS: Basophils # (auto) 0 uL; Basophils % (auto) 0.8 % (0.0-2.0); Eosinophils # (auto) 0.4 uL; Eosinophils % (auto) 6.3 % (0.0-7.0); Hematocrit 42.5 % (36.0-46.0); Hemoglobin 13.8 g/dL (12.2-16.2); Lymphocytes # (auto) 1.5 uL; Lymphocytes % (auto) 26.3 % (10.0-50.0); Mean Corpuscular Hemoglobin 29.2 pg (28.0-32.0); Mean Corpuscular Hgb Conc. 32.5 g/dL (32.0-36.0); Mean Corpuscular Volume 89.8 fL (80.0-100.0); Monocytes # (auto) 0.6 uL; Monocytes % (auto) 10.8 % (0.0-12.0); Neutrophils # (auto) 3.2 uL; Neutrophils % (auto) 55.8 % (37.0-80.0); Nucleated Red Blood Cells % 0.2 %; Platelet Count (auto) 105 10^3/uL (140-450); Red Blood Cells 4.73 10^6/uL (4.0-5.20); Red Cell Distribution Width 16.6 % (11.8-14.3); White Blood Cell 5.8 10^3/uL (4.4-10.8)
[2017-06-09 06:20] LABS: Albumin 2.7 g/dL (3.4-5.0); BUN/Creatinine Ratio 18.4; Bilirubin, Total 0.5 mg/dL (0.2-1.0); Calcium 8.2 mg/dL (8.5-10.1); Potassium 4.2 mmol/L (3.5-5.1); Total Protein 6.7 g/dL (6.4-8.2)
[2017-06-09] MEDS ORDERED: PATIENTS OWN MEDICATION (Cholecalciferol (Vitamin D3) 2,000 UNIT) PO SCH (10:00)
[2017-06-09] MEDS ORDERED: PATIENTS OWN MEDICATION (Nifedipine (Nifedipine Er) 1 TAB) PO SCH (10:00)
[2017-06-09] MEDS: DABIGATRAN 75 MG CAP PO SCH ×2 (10:00→21:36)
[2017-06-09] MEDS ORDERED: OMEPRAZOLE 20MG/10ML ORAL SUSP PO SCH (10:00)
[2017-06-09] MEDS: Chlorthalidone 25 MG TAB PO SCH (10:00)
[2017-06-09] MEDS: NITROGLYCERIN 0.2MG/HR TOPICAL PATCH TD SCH (10:00)
[2017-06-09] MEDS: AMIODARONE HCL 200 MG TAB PO SCH (10:30)
[2017-06-09] MEDS: ASPirin 81 mg TAB PO SCH (10:30)
[2017-06-09] MEDS: POTASSIUM CHL 20 Meq TABLET PO SCH (10:30)
[2017-06-09] MEDS: CHOLECALCIFEROL (VITD3) 1,000 UNIT TAB PO SCH (10:30)
[2017-06-09] MEDS: NIFEdipine ER 30 MG TAB PO SCH (10:30)
[2017-06-09] MEDS: METOPROLOL SUCCINATE XL 50 MG TAB PO SCH (10:30)
[2017-06-09] MEDS: FUROSEMIDE 40 MG/4 ML VIAL IV SCH (10:30)
[2017-06-09] MEDS: PANTOPRAZOLE 40 MG TAB PO SCH (10:30)
[2017-06-09] MEDS ORDERED: methylPREDNISolone SOD SUCC 40 MG/ML VL IV ONE (14:00)
[2017-06-09] MEDS ORDERED: guaiFENesin-DM 100/10mg/5ml SYR PO PRN (14:00)
[2017-06-09] MEDS ORDERED: AZITHROMYCIN 500MG/ 250ML 250 ML IV ONE (14:00)
[2017-06-09] MEDS: NITROGLYCERIN 50MG/250ML 250 ML IV SCH (14:09)
[2017-06-09] MEDS: IPRATROPIUM BROM 0.5 MG/2.5ML INH SOL NEB SCH ×3 (14:55→22:23)
[2017-06-09] MEDS: ALBUTEROL SULF 2.5 MG/0.5ML(0.5%) NEB SOLN NEB SCH ×3 (14:55→22:23)
[2017-06-09] MEDS: ACETAMINOPHEN 500 MG TAB PO PRN (19:15)
[2017-06-09] MEDS: methylPREDNISolone SOD SUCC 40 MG/ML VL IV SCH (21:36)
[2017-06-09] MEDS: ATORVASTATIN 20 MG TAB PO SCH (21:37)
[2017-06-09] MEDS: hydrALAZINE HCL 25 MG TAB PO SCH (21:38)
[2017-06-09] MEDS: PRAMIPEXOLE DIHYDROCHLORIDE MO 0.25 MG TAB PO SCH (21:42)
[2017-06-10] VITALS (52 sets, daily range): BP systolic 117–196; BP diastolic 53–118
[2017-06-10] MEDS ORDERED: PANTOPRAZOLE 40 MG/10 ML VIAL IV ONE (00:30)
[2017-06-10] MEDS: IPRATROPIUM BROM 0.5 MG/2.5ML INH SOL NEB SCH ×6 (02:00→22:34)
[2017-06-10] MEDS: ALBUTEROL SULF 2.5 MG/0.5ML(0.5%) NEB SOLN NEB SCH ×6 (02:00→22:34)
[2017-06-10 03:59] LABS: Basophils # (auto) 0 uL; Basophils % (auto) 0.4 % (0.0-2.0); Eosinophils # (auto) 0 uL; Hematocrit 43.7 % (36.0-46.0); Hemoglobin 14.2 g/dL (12.2-16.2); Lymphocytes # (auto) 0.7 uL; Lymphocytes % (auto) 9.4 % (10.0-50.0); Mean Corpuscular Hemoglobin 29.1 pg (28.0-32.0); Mean Corpuscular Hgb Conc. 32.5 g/dL (32.0-36.0); Mean Corpuscular Volume 89.3 fL (80.0-100.0); Monocytes # (auto) 0.1 uL; Monocytes % (auto) 0.8 % (0.0-12.0); Neutrophils # (auto) 6.6 uL; Neutrophils % (auto) 89.4 % (37.0-80.0); Nucleated Red Blood Cells % 0.1 %; Platelet Count (auto) 115 10^3/uL (140-450); Red Blood Cells 4.89 10^6/uL (4.0-5.20); Red Cell Distribution Width 16.2 % (11.8-14.3); White Blood Cell 7.4 10^3/uL (4.4-10.8)
[2017-06-10 04:17] LABS: Anion Gap 10 (5-15); Blood Urea Nitrogen 50 mg/dL (7-18); Calcium 8.9 mg/dL (8.5-10.1); Carbon Dioxide 21 mmol/L (21-32); Chloride 103 mmol/L (98-107); Potassium 4.5 mmol/L (3.5-5.1); Sodium 134 mmol/L (136-145)
[2017-06-10 04:21] LABS: BUN/Creatinine Ratio 19.8; GFR African American 24 mL/min; GFR Non-African American 20 mL/min; Glucose 144 mg/dL (74-106)
[2017-06-10] MEDS: SODIUM CHLOR 0.9% PF (SALINE LOCK) 10ML VIAL IV SCH ×3 (06:00→21:14)
[2017-06-10] MEDS: FUROSEMIDE 40 MG/4 ML VIAL IV SCH (09:50)
[2017-06-10] MEDS: AZITHROMYCIN 500MG/ 250ML 250 ML IV SCH (09:52)
[2017-06-10] MEDS: methylPREDNISolone SOD SUCC 40 MG/ML VL IV SCH ×2 (09:52→21:12)
[2017-06-10] MEDS: PANTOPRAZOLE 40 MG TAB PO SCH (09:53)
[2017-06-10] MEDS: CHOLECALCIFEROL (VITD3) 1,000 UNIT TAB PO SCH (09:53)
[2017-06-10] MEDS: METOPROLOL SUCCINATE XL 50 MG TAB PO SCH (09:54)
[2017-06-10] MEDS: NIFEdipine ER 30 MG TAB PO SCH (09:55)
[2017-06-10] MEDS: AMIODARONE HCL 200 MG TAB PO SCH (09:55)
[2017-06-10] MEDS: hydrALAZINE HCL 25 MG TAB PO SCH ×2 (09:55→21:13)
[2017-06-10] MEDS: ASPirin 81 mg TAB PO SCH (09:55)
[2017-06-10] MEDS: POTASSIUM CHL 20 Meq TABLET PO SCH (09:56)
[2017-06-10] MEDS: DABIGATRAN 75 MG CAP PO SCH ×2 (09:59→21:14)
[2017-06-10] MEDS: Chlorthalidone 25 MG TAB PO SCH (10:00)
[2017-06-10] MEDS: MORPHINE SULFATE 4 MG/ML SYR/VIAL IV PRN ×2 (10:59→17:18)
[2017-06-10] MEDS ORDERED: FUROSEMIDE 20 MG TAB PO ONE (12:00)
[2017-06-10] MEDS: NITROGLYCERIN 50MG/250ML 250 ML IV SCH (14:09)
[2017-06-10] MEDS: ATORVASTATIN 20 MG TAB PO SCH (21:13)
[2017-06-10] MEDS: PRAMIPEXOLE DIHYDROCHLORIDE MO 0.25 MG TAB PO SCH (21:14)
[2017-06-11] VITALS (11 sets, daily range): BP systolic 128–170; BP diastolic 66–105
[2017-06-11] MEDS: IPRATROPIUM BROM 0.5 MG/2.5ML INH SOL NEB SCH ×4 (00:50→14:10)
[2017-06-11] MEDS: ALBUTEROL SULF 2.5 MG/0.5ML(0.5%) NEB SOLN NEB SCH ×4 (00:51→14:10)
[2017-06-11 04:12] LABS: Calcium 8.8 mg/dL (8.5-10.1); Potassium 4.9 mmol/L (3.5-5.1)
[2017-06-11 04:16] LABS: BUN/Creatinine Ratio 21.6
[2017-06-11] MEDS: SODIUM CHLOR 0.9% PF (SALINE LOCK) 10ML VIAL IV SCH ×2 (04:56→14:26)
[2017-06-11] MEDS: methylPREDNISolone SOD SUCC 40 MG/ML VL IV SCH (09:48)
[2017-06-11] MEDS: CHOLECALCIFEROL (VITD3) 1,000 UNIT TAB PO SCH (09:49)
[2017-06-11] MEDS: ASPirin 81 mg TAB PO SCH (09:49)
[2017-06-11] MEDS: NIFEdipine ER 30 MG TAB PO SCH (09:49)
[2017-06-11] MEDS: hydrALAZINE HCL 25 MG TAB PO SCH (09:50)
[2017-06-11] MEDS: PANTOPRAZOLE 40 MG TAB PO SCH (09:50)
[2017-06-11] MEDS: AMIODARONE HCL 200 MG TAB PO SCH (09:51)
[2017-06-11] MEDS: METOPROLOL SUCCINATE XL 50 MG TAB PO SCH (09:51)
[2017-06-11] MEDS ORDERED: FUROSEMIDE 20 MG TAB PO SCH (10:00)
[2017-06-11] MEDS ORDERED: NITROGLYCERIN 0.4MG/HR TOPICAL PATCH TD SCH (10:00)
[2017-06-11] MEDS: Chlorthalidone 25 MG TAB PO SCH (10:04)
[2017-06-11] MEDS: DABIGATRAN 75 MG CAP PO SCH (10:05)
[2017-06-11] MEDS: AZITHROMYCIN 500MG/ 250ML 250 ML IV SCH (10:22)
[2017-06-11] MEDS ORDERED: NIT04P TD (11:04)
[2017-06-11] MEDS ORDERED: ATOR20TA50 PO (11:04)
[2017-06-11] MEDS ORDERED: FUROSEMIDE 40 MG TAB PO SCH (18:00)
== END 2017-06-11 16:30 | disposition home or self-care (01) | DRG 280 ==
LOC: ER 08:52 → TELE 08:53 → ICU WEST 06-09 17:55
PROVIDERS: ADMIT Internal Medicine; ATTEND Internal Medicine
DX: I21.4 Non-ST elevation (NSTEMI) myocardial infarction (principal); I50.33 Acute on chronic diastolic (congestive) heart failure; N17.9 Acute kidney failure, unspecified; D69.6 Thrombocytopenia, unspecified; I42.9 Cardiomyopathy, unspecified; E44.1 Mild protein-calorie malnutrition; E66.01 Morbid (severe) obesity due to excess calories; N18.4 Chronic kidney disease, stage 4 (severe); I48.0 Paroxysmal atrial fibrillation; I13.0 Hypertensive heart and chronic kidney disease with heart failure and stage 1 through stage 4 chronic kidney disease, or unspecified chronic kidney disease; J44.1 Chronic obstructive pulmonary disease with (acute) exacerbation; R74.8 Abnormal levels of other serum enzymes; K59.00 Constipation, unspecified; F41.9 Anxiety disorder, unspecified; G25.81 Restless legs syndrome; I16.0 Hypertensive urgency; Z68.38 Body mass index [BMI] 38.0-38.9, adult; I25.2 Old myocardial infarction; Z79.899 Other long term (current) drug therapy; Z82.3 Family history of stroke; Z82.49 Family history of ischemic heart disease and other diseases of the circulatory system; Z83.3 Family history of diabetes mellitus; Z86.73 Personal history of transient ischemic attack (TIA), and cerebral infarction without residual deficits; Z87.891 Personal history of nicotine dependence; Z95.0 Presence of cardiac pacemaker; Z88.8 Allergy status to other drugs, medicaments and biological substances; Z90.49 Acquired absence of other specified parts of digestive tract
CPT/HCPCS: 36415; 71046; 74176; 80048; 80053; 80061; 81001; 82550; 83735; 83880; 84443; 84484; 85025; 85379; 85610; 85652; 85730; 86141; 87081; 87086; 87804; 93005; 94640; 94761; 96360; C9113

== ENCOUNTER → 2017-07-08 | Outpatient (CLI) | payer OTHER ==
[~2017-07-08] MED LIST changes: +ATOR20TA50 PO; +NIT04P TD
[2017-07-08 15:23] LABS: Basophils # (auto) 0.1 uL; Basophils % (auto) 1.2 % (0.0-2.0); Eosinophils # (auto) 0.1 uL; Eosinophils % (auto) 2.3 % (0.0-7.0); Hematocrit 51.2 % (36.0-46.0); Hemoglobin 16.3 g/dL (12.2-16.2); Lymphocytes % (auto) 37.9 % (10.0-50.0); Mean Corpuscular Hemoglobin 28.6 pg (28.0-32.0); Mean Corpuscular Hgb Conc. 31.8 g/dL (32.0-36.0); Monocytes # (auto) 0.5 uL; Monocytes % (auto) 9.3 % (0.0-12.0); Neutrophils # (auto) 2.6 uL; Neutrophils % (auto) 49.3 % (37.0-80.0); Nucleated Red Blood Cells % 0.1 %; Red Blood Cells 5.69 10^6/uL (4.0-5.20); Red Cell Distribution Width 16.8 % (11.8-14.3); White Blood Cell 5.2 10^3/uL (4.4-10.8)
[2017-07-08 15:27] LABS: Urine Blood Negative /uL (Negative); Urine Specific Gravity 1.025 (1.001-1.035)
[2017-07-08 15:40] LABS: Albumin 3.5 g/dL (3.4-5.0); BUN/Creatinine Ratio 14.9; Calcium 8.7 mg/dL (8.5-10.1); Phosphorus 3.6 mg/dL (2.5-4.90); Potassium 4.4 mmol/L (3.5-5.1); Uric Acid 8.2 mg/dL (2.6-6.0)
[2017-07-08 15:45] LABS: Platelet Count (auto) 119 10^3/uL (140-450)
[2017-07-08 16:30] LABS: Protein, Urine 288.9 mg/dL (0.0-11.9)
== END | disposition home or self-care (01) ==
LOC: LAB 14:54
PROVIDERS: ATTEND Internal Medicine Nephrology
DX: N18.3 Chronic kidney disease, stage 3 (moderate) (principal); D63.1 Anemia in chronic kidney disease; M10.9 Gout, unspecified; R80.9 Proteinuria, unspecified
CPT/HCPCS: 36415; 80069; 81003; 82570; 83970; 84156; 84550; 85025

== ENCOUNTER 2017-12-05 17:11 | Inpatient (IN) | payer OTHER ==
[~2017-12-05] VITALS: Ht 172.7 cm; Wt 114.0 kg
[~2017-12-05 17:11] MED LIST changes: +NITR-48 PO
[2017-12-05] MEDS ORDERED: FUROSEMIDE 40 MG/4 ML VIAL IV ONE (18:30)
[2017-12-05 18:45] LABS: Basophils # (auto) 0.1 uL; Basophils % (auto) 0.9 % (0.0-2.0); Eosinophils # (auto) 0.1 uL; Eosinophils % (auto) 1.3 % (0.0-7.0); Hematocrit 50.4 % (36.0-46.0); Hemoglobin 16.6 g/dL (12.2-16.2); Lymphocytes # (auto) 2.2 uL; Lymphocytes % (auto) 35.5 % (10.0-50.0); Mean Corpuscular Hemoglobin 29.7 pg (28.0-32.0); Mean Corpuscular Volume 90.1 fL (80.0-100.0); Monocytes # (auto) 0.6 uL; Monocytes % (auto) 9.1 % (0.0-12.0); Neutrophils # (auto) 3.4 uL; Neutrophils % (auto) 53.2 % (37.0-80.0); Nucleated Red Blood Cells % 0.2 %; Platelet Count (auto) 150 10^3/uL (140-450); Red Blood Cells 5.59 10^6/uL (4.0-5.20); Red Cell Distribution Width 17.6 % (11.8-14.3); White Blood Cell 6.3 10^3/uL (4.4-10.8)
[2017-12-05 19:09] LABS: Alanine Aminotransferase 20 U/L (13-56); Alkaline Phosphatase 77 U/L (45-117); Anion Gap 7 (5-15); Aspartate Aminotransferase 15 U/L (15-37); BUN/Creatinine Ratio 17.2; Bilirubin, Total 0.3 mg/dL (0.2-1.0); Blood Urea Nitrogen 52 mg/dL (7-18); Carbon Dioxide 16 mmol/L (21-32); Chloride 112 mmol/L (98-107); GFR African American 20 mL/min; GFR Non-African American 16 mL/min; Glucose 122 mg/dL (74-106); Magnesium 2.6 mg/dL (1.6-2.6); Potassium 5.4 mmol/L (3.5-5.1); Sodium 135 mmol/L (136-145); Total Protein 8.9 g/dL (6.4-8.2)
[2017-12-05] MEDS ORDERED: ACETAMINOPHEN 325 MG TAB PO PRN (21:00)
[2017-12-05] MEDS ORDERED: ONDANSETRON HCL 4 MG/2 ML VIAL IV PRN (21:00)
[2017-12-05] MEDS ORDERED: ALBUTEROL SULF 2.5 MG/0.5ML(0.5%) NEB SOLN NEB PRN (21:00)
[2017-12-05 22:00] VITALS: BP 157/108
[2017-12-05] MEDS: DABIGATRAN 75 MG CAP PO SCH ×2 (22:00→22:35)
[2017-12-05] MEDS: hydrALAZINE HCL 25 MG TAB PO SCH (22:16)
[2017-12-05] MEDS: PRAMIPEXOLE DIHYDROCHLORIDE MO 0.25 MG TAB PO SCH (22:17)
[2017-12-05] MEDS: ATORVASTATIN 20 MG TAB PO SCH (22:17)
[2017-12-05 23:01] VITALS: BP 150/87
[2017-12-05 23:05] LABS: INR 0.93 (0.9-1.15); Partial Thromboplastin Time 24.2 sec (23.78-33.04)
[2017-12-06] MEDS ORDERED: hydrALAZINE HCL 20 MG/ML VL IV ONE (02:30)
[2017-12-06 04:39] VITALS: BP 151/97
[2017-12-06 07:05] LABS: Basophils # (auto) 0 uL; Basophils % (auto) 0.9 % (0.0-2.0); Eosinophils # (auto) 0.1 uL; Eosinophils % (auto) 2.4 % (0.0-7.0); Hemoglobin 16.2 g/dL (12.2-16.2); Mean Corpuscular Hemoglobin 29.5 pg (28.0-32.0); Mean Corpuscular Volume 89.4 fL (80.0-100.0); Monocytes # (auto) 0.5 uL; Monocytes % (auto) 9.3 % (0.0-12.0); Neutrophils # (auto) 2.8 uL; Neutrophils % (auto) 51.4 % (37.0-80.0); Nucleated Red Blood Cells % 0.4 %; Platelet Count (auto) 151 10^3/uL (140-450); Red Blood Cells 5.48 10^6/uL (4.0-5.20); White Blood Cell 5.5 10^3/uL (4.4-10.8)
[2017-12-06 07:22] LABS: Albumin 3.9 g/dL (3.4-5.0); BUN/Creatinine Ratio 18.4; Bilirubin, Total 0.3 mg/dL (0.2-1.0); Calcium 9.1 mg/dL (8.5-10.1); Potassium 4.7 mmol/L (3.5-5.1); Total Protein 8.2 g/dL (6.4-8.2)
[2017-12-06 08:00] VITALS: BP 150/97
[2017-12-06 09:00] VITALS: BP 150/97
[2017-12-06] MEDS: AMIODARONE HCL 200 MG TAB PO SCH (11:17)
[2017-12-06] MEDS: PANTOPRAZOLE 40 MG TAB PO SCH (11:17)
[2017-12-06] MEDS: hydrALAZINE HCL 25 MG TAB PO SCH ×2 (11:17→21:43)
[2017-12-06] MEDS: NIFEdipine ER 30 MG TAB PO SCH (11:18)
[2017-12-06] MEDS: METOPROLOL SUCCINATE XL 50 MG TAB PO SCH (11:18)
[2017-12-06] MEDS: DABIGATRAN 75 MG CAP PO SCH ×2 (11:19→21:44)
[2017-12-06] MEDS: SOD CHL 0.45% 1,000 ML IV SCH (12:57)
[2017-12-06 13:00] VITALS: BP 135/93
[2017-12-06 15:19] LABS: Urine Bacteria FEW /hpf (None Seen); Urine Blood Negative /uL (Negative); Urine Specific Gravity 1.014 (1.001-1.035); Urine WBC 2 /hpf (0 - 5)
[2017-12-06 15:32] LABS: Protein, Urine 57.9 mg/dL (0.0-11.9)
[2017-12-06 17:00] VITALS: BP 120/79
[2017-12-06] MEDS: ATORVASTATIN 20 MG TAB PO SCH (21:44)
[2017-12-06] MEDS: PRAMIPEXOLE DIHYDROCHLORIDE MO 0.25 MG TAB PO SCH (21:44)
[2017-12-06 22:00] VITALS: BP 147/85
[2017-12-07] VITALS (8 sets, daily range): BP systolic 120–160; BP diastolic 71–91
[2017-12-07] MEDS: SOD CHL 0.45% 1,000 ML IV SCH ×2 (00:20→01:53)
[2017-12-07 05:37] LABS: Basophils # (auto) 0.1 uL; Eosinophils # (auto) 0.2 uL; Eosinophils % (auto) 3.4 % (0.0-7.0); Hematocrit 49.3 % (36.0-46.0); Lymphocytes # (auto) 2.5 uL; Lymphocytes % (auto) 43.9 % (10.0-50.0); Mean Corpuscular Hemoglobin 29.3 pg (28.0-32.0); Mean Corpuscular Hgb Conc. 32.4 g/dL (32.0-36.0); Mean Corpuscular Volume 90.4 fL (80.0-100.0); Monocytes # (auto) 0.4 uL; Monocytes % (auto) 7.3 % (0.0-12.0); Neutrophils # (auto) 2.5 uL; Neutrophils % (auto) 44.4 % (37.0-80.0); Nucleated Red Blood Cells % 0.3 %; Platelet Count (auto) 148 10^3/uL (140-450); Red Blood Cells 5.46 10^6/uL (4.0-5.20); Red Cell Distribution Width 17.4 % (11.8-14.3); White Blood Cell 5.6 10^3/uL (4.4-10.8)
[2017-12-07 05:58] LABS: BUN/Creatinine Ratio 19.9; Calcium 8.5 mg/dL (8.5-10.1); Potassium 4.8 mmol/L (3.5-5.1); Uric Acid 9.8 mg/dL (2.6-6.0)
[2017-12-07] MEDS: METOPROLOL SUCCINATE XL 50 MG TAB PO SCH (09:41)
[2017-12-07] MEDS: AMIODARONE HCL 200 MG TAB PO SCH (09:42)
[2017-12-07] MEDS: NIFEdipine ER 30 MG TAB PO SCH (09:42)
[2017-12-07] MEDS: PANTOPRAZOLE 40 MG TAB PO SCH (09:42)
[2017-12-07] MEDS: DABIGATRAN 75 MG CAP PO SCH ×2 (09:42→22:06)
[2017-12-07] MEDS: ALLOPURINOL 100 MG TAB PO SCH (09:42)
[2017-12-07] MEDS: hydrALAZINE HCL 25 MG TAB PO SCH ×2 (10:00→22:00)
[2017-12-07] MEDS: FUROSEMIDE 40 MG TAB PO SCH (14:14)
[2017-12-07] MEDS: ATORVASTATIN 20 MG TAB PO SCH (22:06)
[2017-12-07] MEDS: PRAMIPEXOLE DIHYDROCHLORIDE MO 0.25 MG TAB PO SCH (22:06)
[2017-12-07] MEDS: TEMAZEPAM 15 MG CAP PO PRN (23:41)
[2017-12-08] VITALS (8 sets, daily range): BP systolic 93–142; BP diastolic 53–93
[2017-12-08 07:24] LABS: BUN/Creatinine Ratio 21.2; Calcium 8.6 mg/dL (8.5-10.1); Potassium 4.8 mmol/L (3.5-5.1)
[2017-12-08] MEDS: METOPROLOL SUCCINATE XL 50 MG TAB PO SCH (09:21)
[2017-12-08] MEDS: ALLOPURINOL 100 MG TAB PO SCH (09:21)
[2017-12-08] MEDS: DABIGATRAN 75 MG CAP PO SCH ×2 (09:21→21:34)
[2017-12-08] MEDS: PANTOPRAZOLE 40 MG TAB PO SCH (09:22)
[2017-12-08] MEDS: NIFEdipine ER 30 MG TAB PO SCH (09:22)
[2017-12-08] MEDS: AMIODARONE HCL 200 MG TAB PO SCH (09:22)
[2017-12-08] MEDS: HYDROcodone-ACET 5/325MG TAB PO PRN (09:23)
[2017-12-08] MEDS: FUROSEMIDE 40 MG TAB PO SCH (10:00)
[2017-12-08] MEDS: ATORVASTATIN 20 MG TAB PO SCH (21:33)
[2017-12-08] MEDS: PRAMIPEXOLE DIHYDROCHLORIDE MO 0.25 MG TAB PO SCH (21:34)
[2017-12-08] MEDS: TEMAZEPAM 15 MG CAP PO PRN (21:36)
[2017-12-09] VITALS (7 sets, daily range): BP systolic 121–150; BP diastolic 75–93
[2017-12-09 07:54] LABS: BUN/Creatinine Ratio 22.3; Calcium 8.6 mg/dL (8.5-10.1); Potassium 4.5 mmol/L (3.5-5.1)
[2017-12-09] MEDS ORDERED: ADENOSINE 90 MG in GIVE UN-DILUTED 0 ML IV ONE (08:30)
[2017-12-09] MEDS: DABIGATRAN 75 MG CAP PO SCH ×2 (12:47→21:57)
[2017-12-09] MEDS: ALLOPURINOL 100 MG TAB PO SCH (12:47)
[2017-12-09] MEDS: FUROSEMIDE 40 MG TAB PO SCH (12:47)
[2017-12-09] MEDS: PANTOPRAZOLE 40 MG TAB PO SCH (12:48)
[2017-12-09] MEDS: AMIODARONE HCL 200 MG TAB PO SCH (12:48)
[2017-12-09] MEDS: NIFEdipine ER 30 MG TAB PO SCH (12:48)
[2017-12-09] MEDS: ATORVASTATIN 20 MG TAB PO SCH (21:57)
[2017-12-09] MEDS: PRAMIPEXOLE DIHYDROCHLORIDE MO 0.25 MG TAB PO SCH (21:57)
[2017-12-10 05:14] VITALS: BP 123/81
[2017-12-10 07:56] VITALS: BP 121/79
[2017-12-10 08:00] VITALS: BP 121/79
[2017-12-10] MEDS: AMIODARONE HCL 200 MG TAB PO SCH (10:42)
[2017-12-10] MEDS: NIFEdipine ER 30 MG TAB PO SCH (10:43)
[2017-12-10] MEDS: FUROSEMIDE 40 MG TAB PO SCH (10:43)
[2017-12-10] MEDS: ALLOPURINOL 100 MG TAB PO SCH (10:43)
[2017-12-10] MEDS: PANTOPRAZOLE 40 MG TAB PO SCH (10:43)
[2017-12-10] MEDS: DABIGATRAN 75 MG CAP PO SCH ×2 (10:43→21:38)
[2017-12-10 17:35] VITALS: BP 122/71
[2017-12-10] MEDS: PRAMIPEXOLE DIHYDROCHLORIDE MO 0.25 MG TAB PO SCH (21:38)
[2017-12-10] MEDS: ATORVASTATIN 20 MG TAB PO SCH (21:38)
[2017-12-10 22:00] VITALS: BP 123/87
[2017-12-11 05:00] VITALS: BP 125/71
[2017-12-11 09:00] VITALS: BP 136/96
[2017-12-11] MEDS: PANTOPRAZOLE 40 MG TAB PO SCH (10:12)
[2017-12-11] MEDS: FUROSEMIDE 40 MG TAB PO SCH (10:12)
[2017-12-11] MEDS: DABIGATRAN 75 MG CAP PO SCH ×2 (10:12→21:45)
[2017-12-11] MEDS: NIFEdipine ER 30 MG TAB PO SCH (10:12)
[2017-12-11] MEDS: AMIODARONE HCL 200 MG TAB PO SCH (10:13)
[2017-12-11] MEDS: ALLOPURINOL 100 MG TAB PO SCH (10:13)
[2017-12-11 13:00] VITALS: BP 110/70
[2017-12-11] MEDS ORDERED: SODIUM CHLORIDE 0.9% 1,000 ML IV SCH ×2 (14:15→22:37)
[2017-12-11 15:55] VITALS: BP 110/70
[2017-12-11 17:00] VITALS: BP 123/74
[2017-12-11 19:47] VITALS: BP 123/74
[2017-12-11] MEDS: ATORVASTATIN 20 MG TAB PO SCH (21:44)
[2017-12-11] MEDS: PRAMIPEXOLE DIHYDROCHLORIDE MO 0.25 MG TAB PO SCH (21:45)
[2017-12-11] MEDS: ACETYLCYSTEINE ORAL for CIN 20%(200MG/ML) 4ML PO SCH (21:45)
[2017-12-11] MEDS: TEMAZEPAM 15 MG CAP PO PRN (21:45)
[2017-12-11] MEDS ORDERED: diphenhdrAMINE HCL 50 MG/1 ML VL IV ONE (22:45)
[2017-12-11] MEDS ORDERED: SODIUM BICARBONATE 50ML VIAL 150 ML in D5W 5% 1,000 ML IV SCH (22:45)
[2017-12-12 00:58] VITALS: BP 129/69
[2017-12-12 05:00] VITALS: BP 115/61
[2017-12-12 07:45] LABS: BUN/Creatinine Ratio 20.5; Calcium 8.6 mg/dL (8.5-10.1); Potassium 4.1 mmol/L (3.5-5.1)
[2017-12-12 09:00] VITALS: BP 154/98
[2017-12-12] MEDS: AMIODARONE HCL 200 MG TAB PO SCH (10:05)
[2017-12-12] MEDS: DABIGATRAN 75 MG CAP PO SCH ×2 (10:07→21:26)
[2017-12-12] MEDS: ALLOPURINOL 100 MG TAB PO SCH (10:07)
[2017-12-12] MEDS: NIFEdipine ER 30 MG TAB PO SCH (10:07)
[2017-12-12] MEDS: PANTOPRAZOLE 40 MG TAB PO SCH (10:07)
[2017-12-12] MEDS: ACETYLCYSTEINE ORAL for CIN 20%(200MG/ML) 4ML PO SCH ×2 (10:14→21:26)
[2017-12-12 13:00] VITALS: BP 118/72
[2017-12-12] MEDS ORDERED: FUROSEMIDE 20 MG/2 ML VIAL IV ONE (15:30)
[2017-12-12] MEDS ORDERED: SODIUM CHL 0.9% 0 ML ONE (16:17)
[2017-12-12] MEDS ORDERED: fentaNYL CITRATE 100 MCG/2 ML VL ONE (16:17)
[2017-12-12] MEDS ORDERED: MIDAZOLAM HCL 1MG/1ML-2 ML VIAL ONE (16:17)
[2017-12-12] MEDS ORDERED: ANGIOMAX 250 MG VIAL IV ONE (16:17)
[2017-12-12] MEDS ORDERED: SODIUM BICARBONATE 50ML VIAL 100 ML in D5W 5% 1,000 ML IV ONE (16:30)
[2017-12-12 16:59] VITALS: BP 154/94
[2017-12-12] MEDS: PRAMIPEXOLE DIHYDROCHLORIDE MO 0.25 MG TAB PO SCH (21:25)
[2017-12-12] MEDS: ATORVASTATIN 20 MG TAB PO SCH (21:25)
[2017-12-12] MEDS: TEMAZEPAM 15 MG CAP PO PRN (21:26)
[2017-12-12 22:00] VITALS: BP 160/92
[2017-12-13 04:33] VITALS: BP 128/83
[2017-12-13] MEDS: SODIUM CHLORIDE 0.9% 1,000 ML IV SCH ×3 (05:55→23:56)
[2017-12-13] MEDS ORDERED: IODIXANOL 320MG/ML 100ML BTL IV ONE ×2 (07:16→08:36)
[2017-12-13] MEDS ORDERED: LIDOCAINE 2%HCL (LOCAL ANESTH.) INJ 10ml MDV ONE (07:16)
[2017-12-13 07:36] LABS: Basophils # (auto) 0 uL; Basophils % (auto) 0.7 % (0.0-2.0); Eosinophils # (auto) 0.2 uL; Eosinophils % (auto) 2.8 % (0.0-7.0); Hematocrit 46.3 % (36.0-46.0); Hemoglobin 15.2 g/dL (12.2-16.2); Lymphocytes # (auto) 2.3 uL; Lymphocytes % (auto) 39.6 % (10.0-50.0); Mean Corpuscular Hgb Conc. 32.8 g/dL (32.0-36.0); Mean Corpuscular Volume 88.4 fL (80.0-100.0); Monocytes # (auto) 0.5 uL; Monocytes % (auto) 9.5 % (0.0-12.0); Neutrophils # (auto) 2.7 uL; Neutrophils % (auto) 47.4 % (37.0-80.0); Nucleated Red Blood Cells % 0.2 %; Platelet Count (auto) 156 10^3/uL (140-450); Red Blood Cells 5.23 10^6/uL (4.0-5.20); Red Cell Distribution Width 17.1 % (11.8-14.3); White Blood Cell 5.7 10^3/uL (4.4-10.8)
[2017-12-13 07:54] LABS: INR 1.44 (0.9-1.15); Partial Thromboplastin Time 64.7 sec (23.78-33.04); Prothrombin Time 15.1 sec (9.27-12.13)
[2017-12-13 07:59] LABS: BUN/Creatinine Ratio 22.5; Calcium 8.7 mg/dL (8.5-10.1); Potassium 3.7 mmol/L (3.5-5.1)
[2017-12-13] MEDS ORDERED: MIDAZOLAM HCL 1MG/1ML-2 ML VIAL ONE (08:17)
[2017-12-13] MEDS ORDERED: ANGIOMAX 250 MG VIAL IV ONE ×2 (08:17→09:52)
[2017-12-13] MEDS ORDERED: fentaNYL CITRATE 100 MCG/2 ML VL ONE (08:17)
[2017-12-13] MEDS ORDERED: SODIUM CHL 0.9% 50 ML ONE ×2 (08:18→09:52)
[2017-12-13 09:29] VITALS: BP 146/90
[2017-12-13] MEDS ORDERED: FUROSEMIDE 20 MG/2 ML VIAL IV ONE (09:30)
[2017-12-13] MEDS ORDERED: CLOPIDOGREL 300 MG TAB ONE (09:48)
[2017-12-13] MEDS ORDERED: ASPirin 325 MG TAB ONE (09:48)
[2017-12-13] MEDS: NIFEdipine ER 30 MG TAB PO SCH (10:00)
[2017-12-13] MEDS: ACETYLCYSTEINE ORAL for CIN 20%(200MG/ML) 4ML PO SCH (10:00)
[2017-12-13] MEDS: DABIGATRAN 75 MG CAP PO SCH ×2 (10:00→21:52)
[2017-12-13] MEDS: PANTOPRAZOLE 40 MG TAB PO SCH (10:00)
[2017-12-13] MEDS: AMIODARONE HCL 200 MG TAB PO SCH (10:00)
[2017-12-13] MEDS: ALLOPURINOL 100 MG TAB PO SCH (10:00)
[2017-12-13 13:36] VITALS: BP 142/92
[2017-12-13 17:28] VITALS: BP 164/100
[2017-12-13] MEDS: ATORVASTATIN 20 MG TAB PO SCH (21:52)
[2017-12-13] MEDS: TEMAZEPAM 15 MG CAP PO PRN (21:52)
[2017-12-13] MEDS: PRAMIPEXOLE DIHYDROCHLORIDE MO 0.25 MG TAB PO SCH (21:52)
[2017-12-13 22:00] VITALS: BP 160/94
[2017-12-14 05:00] VITALS: BP 158/104
[2017-12-14 08:00] VITALS: BP 164/94
[2017-12-14 08:25] LABS: BUN/Creatinine Ratio 21.3; Calcium 8.5 mg/dL (8.5-10.1); Potassium 4.2 mmol/L (3.5-5.1)
[2017-12-14] MEDS: AMIODARONE HCL 200 MG TAB PO SCH (08:59)
[2017-12-14] MEDS: NIFEdipine ER 30 MG TAB PO SCH (08:59)
[2017-12-14] MEDS: PANTOPRAZOLE 40 MG TAB PO SCH (08:59)
[2017-12-14] MEDS: ALLOPURINOL 100 MG TAB PO SCH (09:00)
[2017-12-14] MEDS: DABIGATRAN 75 MG CAP PO SCH ×2 (10:00→21:28)
[2017-12-14] MEDS ORDERED: METOPROLOL TARTRATE 25 MG TAB PO ONE (10:45)
[2017-12-14] MEDS: CLOPIDOGREL BISULFATE 75 MG TAB PO SCH (11:05)
[2017-12-14 12:00] VITALS: BP 162/108
[2017-12-14] MEDS ORDERED: hydrALAZINE HCL 25 MG TAB PO ONE (13:00)
[2017-12-14] MEDS: HYDROcodone-ACET 5/325MG TAB PO PRN (16:11)
[2017-12-14 17:00] VITALS: BP 165/91
[2017-12-14] MEDS: SODIUM CHLORIDE 0.9% 1,000 ML IV SCH (21:01)
[2017-12-14 21:15] VITALS: BP 165/91
[2017-12-14] MEDS: hydrALAZINE HCL 25 MG TAB PO SCH (21:27)
[2017-12-14] MEDS: ATORVASTATIN 20 MG TAB PO SCH (21:28)
[2017-12-14] MEDS: PRAMIPEXOLE DIHYDROCHLORIDE MO 0.25 MG TAB PO SCH (21:28)
[2017-12-14 22:00] VITALS: BP 147/90
[2017-12-15] MEDS: HYDROcodone-ACET 5/325MG TAB PO PRN (01:46)
[2017-12-15 05:00] VITALS: BP 138/75
[2017-12-15 09:00] VITALS: BP 153/79
[2017-12-15] MEDS: DABIGATRAN 75 MG CAP PO SCH ×2 (09:40→10:00)
[2017-12-15] MEDS: CLOPIDOGREL BISULFATE 75 MG TAB PO SCH (09:49)
[2017-12-15] MEDS: NIFEdipine ER 30 MG TAB PO SCH (09:49)
[2017-12-15] MEDS: ALLOPURINOL 100 MG TAB PO SCH (09:49)
[2017-12-15] MEDS: AMIODARONE HCL 200 MG TAB PO SCH (09:49)
[2017-12-15] MEDS: hydrALAZINE HCL 25 MG TAB PO SCH (09:49)
[2017-12-15] MEDS: PANTOPRAZOLE 40 MG TAB PO SCH (09:50)
[2017-12-15] MEDS: SODIUM CHLORIDE 0.9% 1,000 ML IV SCH (11:01)
[2017-12-15 12:43] VITALS: BP 156/87
[2017-12-15 16:46] VITALS: BP 159/89
[2017-12-15 17:47] VITALS: BP 159/89
== END 2017-12-15 19:20 | disposition home or self-care (01) | DRG 252 ==
LOC: ER 17:11 → OVERFLOW 17:12 → WEST WING 21:35
PROVIDERS: ADMIT Nurse Practitioner; ATTEND Internal Medicine Pulmonary Disease
PROC: 047H3DZ Dilation of Right External Iliac Artery with Intraluminal Device, Percutaneous Approach (ICD-10-PCS; principal; 2017-12-13)
PROC: 4A023N7 Measurement of Cardiac Sampling and Pressure, Left Heart, Percutaneous Approach (ICD-10-PCS; 2017-12-13)
PROC: B2111ZZ Fluoroscopy of Multiple Coronary Arteries using Low Osmolar Contrast (ICD-10-PCS; 2017-12-13)
PROC: B41F1ZZ Fluoroscopy of Right Lower Extremity Arteries using Low Osmolar Contrast (ICD-10-PCS; 2017-12-13)
DX: I16.1 Hypertensive emergency (principal); N17.0 Acute kidney failure with tubular necrosis; E87.0 Hyperosmolality and hypernatremia; D68.69 Other thrombophilia; I48.92 Unspecified atrial flutter; I50.32 Chronic diastolic (congestive) heart failure; N18.5 Chronic kidney disease, stage 5; I13.2 Hypertensive heart and chronic kidney disease with heart failure and with stage 5 chronic kidney disease, or end stage renal disease; E66.9 Obesity, unspecified; E78.5 Hyperlipidemia, unspecified; E87.5 Hyperkalemia; E87.8 Other disorders of electrolyte and fluid balance, not elsewhere classified; I08.3 Combined rheumatic disorders of mitral, aortic and tricuspid valves; I25.2 Old myocardial infarction; I27.20 Pulmonary hypertension, unspecified; I48.91 Unspecified atrial fibrillation; I70.8 Atherosclerosis of other arteries; J44.9 Chronic obstructive pulmonary disease, unspecified; N27.1 Small kidney, bilateral; Z80.9 Family history of malignant neoplasm, unspecified; Z82.3 Family history of stroke; Z82.49 Family history of ischemic heart disease and other diseases of the circulatory system; Z86.73 Personal history of transient ischemic attack (TIA), and cerebral infarction without residual deficits; Z95.0 Presence of cardiac pacemaker; E11.22 Type 2 diabetes mellitus with diabetic chronic kidney disease; Z88.8 Allergy status to other drugs, medicaments and biological substances; Z68.38 Body mass index [BMI] 38.0-38.9, adult
CPT/HCPCS: 36415; 37221; 71045; 75710; 78452; 80048; 80053; 81001; 82088; 82306; 82570; 83735; 83880; 84100; 84156; 84244; 84300; 84443; 84484; 84550; 85025; 85610; 85730; 87081; 93005; 93017; 93458; 94640; 94761; 96374; 97110; 97116; 97163; 97530; 99152; 99153; A6257; J0153; J2001; J2250; Q9967

== ENCOUNTER → 2017-12-25 | Outpatient (CLI) | payer OTHER ==
[~2017-12-25] MED LIST changes: -CHLO25TA22 PO; -METO-169 PO; -NIT04P TD
[2017-12-25 16:24] LABS: Basophils # (auto) 0.1 uL; Basophils % (auto) 0.5 % (0.0-2.0); Eosinophils # (auto) 0 uL; Eosinophils % (auto) 0.3 % (0.0-7.0); Hematocrit 45.5 % (36.0-46.0); Hemoglobin 14.8 g/dL (12.2-16.2); Lymphocytes # (auto) 2.9 uL; Lymphocytes % (auto) 23.7 % (10.0-50.0); Mean Corpuscular Hemoglobin 29.1 pg (28.0-32.0); Mean Corpuscular Hgb Conc. 32.6 g/dL (32.0-36.0); Mean Corpuscular Volume 89.2 fL (80.0-100.0); Monocytes # (auto) 0.9 uL; Monocytes % (auto) 7.4 % (0.0-12.0); Neutrophils # (auto) 8.3 uL; Neutrophils % (auto) 68.1 % (37.0-80.0); Nucleated Red Blood Cells % 0.2 %; Platelet Count (auto) 239 10^3/uL (140-450); White Blood Cell 12.2 10^3/uL (4.4-10.8)
[2017-12-25 16:31] LABS: Urine Bacteria FEW /hpf (None Seen); Urine Blood Negative /uL (Negative); Urine Mucus FEW (None Seen); Urine Specific Gravity 1.022 (1.001-1.035); Urine WBC 18 /hpf (0 - 5)
[2017-12-25 16:36] LABS: INR 0.93 (0.9-1.15); Partial Thromboplastin Time 27.2 sec (23.78-33.04)
[2017-12-25 16:52] LABS: Albumin 3.7 g/dL (3.4-5.0); BUN/Creatinine Ratio 18.9; Calcium 9.1 mg/dL (8.5-10.1); Phosphorus 3.7 mg/dL (2.5-4.90); Potassium 3.9 mmol/L (3.5-5.1)
[2017-12-25 16:55] LABS: % Iron Saturation 18.2 % (15-50)
== END | disposition home or self-care (01) ==
LOC: LAB 15:53
PROVIDERS: ATTEND Internal Medicine Nephrology
DX: I13.0 Hypertensive heart and chronic kidney disease with heart failure and stage 1 through stage 4 chronic kidney disease, or unspecified chronic kidney disease (principal); N18.3 Chronic kidney disease, stage 3 (moderate); I50.9 Heart failure, unspecified; M54.5 Low back pain; J44.9 Chronic obstructive pulmonary disease, unspecified
CPT/HCPCS: 36415; 80069; 81001; 82306; 82570; 82728; 83540; 83550; 83970; 84156; 84550; 85025; 85610; 85730

== ENCOUNTER → 2018-02-12 | Outpatient (CLI) | payer OTHER ==
[~2018-02-12] MED LIST changes: -DABI75CA3 PO; -HYDR50TA15 PO; -NIFE90TA30 PO; -NITR-48 PO
[2018-02-12 12:09] LABS: Basophils # (auto) 0 uL; Basophils % (auto) 0.8 % (0.0-2.0); Eosinophils # (auto) 0.2 uL; Eosinophils % (auto) 2.8 % (0.0-7.0); Hematocrit 35.9 % (36.0-46.0); Hemoglobin 11.2 g/dL (12.2-16.2); Lymphocytes # (auto) 1.7 uL; Lymphocytes % (auto) 29.1 % (10.0-50.0); Mean Corpuscular Hemoglobin 27.7 pg (28.0-32.0); Mean Corpuscular Hgb Conc. 31.1 g/dL (32.0-36.0); Mean Corpuscular Volume 89.1 fL (80.0-100.0); Monocytes # (auto) 0.5 uL; Monocytes % (auto) 9.3 % (0.0-12.0); Neutrophils # (auto) 3.4 uL; Nucleated Red Blood Cells % 0.3 %; Platelet Count (auto) 239 10^3/uL (140-450); Red Blood Cells 4.03 10^6/uL (4.0-5.20); Red Cell Distribution Width 18.7 % (11.8-14.3); White Blood Cell 5.8 10^3/uL (4.4-10.8)
[2018-02-12 12:14] LABS: Urine Blood Negative /uL (Negative); Urine Specific Gravity 1.021 (1.001-1.035)
[2018-02-12 13:28] LABS: Albumin 3.2 g/dL (3.4-5.0); BUN/Creatinine Ratio 16.2; Calcium 9.1 mg/dL (8.5-10.1); Potassium 4.2 mmol/L (3.5-5.1)
[2018-02-12 13:31] LABS: Bilirubin, Total 0.6 mg/dL (0.2-1.0); Total Protein 8.3 g/dL (6.4-8.2)
== END | disposition home or self-care (01) ==
LOC: LAB 11:31
PROVIDERS: ATTEND Physician Assistant
DX: I82.411 Acute embolism and thrombosis of right femoral vein (principal); I73.9 Peripheral vascular disease, unspecified; G62.9 Polyneuropathy, unspecified; R53.83 Other fatigue; I12.9 Hypertensive chronic kidney disease with stage 1 through stage 4 chronic kidney disease, or unspecified chronic kidney disease; N18.4 Chronic kidney disease, stage 4 (severe)
CPT/HCPCS: 36415; 80053; 80061; 81003; 85025

== ENCOUNTER 2018-02-18 10:47 | Inpatient (IN) | payer OTHER ==
[~2018-02-18] VITALS: Ht 177.8 cm; Wt 111.1 kg
[2018-02-18] MEDS ORDERED: SODIUM CHLORIDE 0.9% 500 ML IVB ONE (11:35)
[2018-02-18] MEDS ORDERED: MORPHINE SULFATE 4 MG/ML SYR/VIAL IV ONE (11:45)
[2018-02-18] MEDS ORDERED: ONDANSETRON HCL 4 MG/2 ML VIAL IV ONE (11:45)
[2018-02-18 12:10] LABS: Basophils # (auto) 0 uL; Eosinophils # (auto) 0.2 uL; Monocytes # (auto) 0.6 uL; Red Cell Distribution Width 19.3 % (11.8-14.3)
[2018-02-18 12:14] LABS: Basophils % (auto) 0.6 % (0.0-2.0); Eosinophils % (auto) 2.3 % (0.0-7.0); Hematocrit 35.1 % (36.0-46.0); Hemoglobin 11.1 g/dL (12.2-16.2); Lymphocytes # (auto) 1.4 uL; Lymphocytes % (auto) 21.6 % (10.0-50.0); Mean Corpuscular Hemoglobin 28.3 pg (28.0-32.0); Mean Corpuscular Hgb Conc. 31.8 g/dL (32.0-36.0); Mean Corpuscular Volume 89.1 fL (80.0-100.0); Monocytes % (auto) 9.4 % (0.0-12.0); Neutrophils # (auto) 4.3 uL; Neutrophils % (auto) 66.1 % (37.0-80.0); Platelet Count (auto) 157 10^3/uL (140-450); Red Blood Cells 3.93 10^6/uL (4.0-5.20); White Blood Cell 6.5 10^3/uL (4.4-10.8)
[2018-02-18 12:27] LABS: Albumin 3.2 g/dL (3.4-5.0); BUN/Creatinine Ratio 14.9; Calcium 9.1 mg/dL (8.5-10.1); Potassium 4.6 mmol/L (3.5-5.1)
[2018-02-18 12:28] LABS: Lipase 95 U/L (73-393); Magnesium 2.2 mg/dL (1.6-2.6)
[2018-02-18 12:30] LABS: Bilirubin, Total 0.4 mg/dL (0.2-1.0); Total Protein 8.1 g/dL (6.4-8.2)
[2018-02-18] MEDS ORDERED: cefTRIAXone 1GM/50ML D5W 50 ML IV ONE (15:45)
[2018-02-18] MEDS ORDERED: ALBUTEROL SULF 2.5 MG/0.5ML(0.5%) NEB SOLN NEB PRN (15:45)
[2018-02-18] MEDS ORDERED: ONDANSETRON HCL 4 MG/2 ML VIAL IV PRN (15:45)
[2018-02-18] MEDS: SODIUM CHLORIDE 0.9% 1,000 ML IV SCH (16:01)
[2018-02-18 16:55] VITALS: BP 143/76
[2018-02-18 17:00] VITALS: BP 143/76
[2018-02-18] MEDS: HYDROcodone-ACET 5/325MG TAB PO PRN (18:04)
[2018-02-18 19:53] VITALS: BP 143/76
[2018-02-18 20:20] VITALS: BP 112/74
[2018-02-18] MEDS: ATORVASTATIN 20 MG TAB PO SCH (20:37)
[2018-02-18] MEDS: HYDROmorphone HCL 2 MG/ML VL IV PRN (20:37)
[2018-02-18 22:00] VITALS: BP 112/74
[2018-02-18] MEDS ORDERED: TEMAZEPAM 15 MG CAP PO ONE (22:15)
[2018-02-19] MEDS: HYDROmorphone HCL 2 MG/ML VL IV PRN ×4 (03:44→19:46)
[2018-02-19 05:00] VITALS: BP 163/86
[2018-02-19] MEDS: HYDROcodone-ACET 5/325MG TAB PO PRN (06:44)
[2018-02-19 06:56] LABS: Basophils # (auto) 0 uL; Basophils % (auto) 0.5 % (0.0-2.0); Eosinophils # (auto) 0.1 uL; Hemoglobin 10.7 g/dL (12.2-16.2); Lymphocytes # (auto) 1.7 uL; Nucleated Red Blood Cells % 0.2 %
[2018-02-19 06:59] LABS: Eosinophils % (auto) 2.1 % (0.0-7.0); Hematocrit 35.4 % (36.0-46.0); Lymphocytes % (auto) 24.3 % (10.0-50.0); Mean Corpuscular Hemoglobin 28.6 pg (28.0-32.0); Mean Corpuscular Hgb Conc. 30.3 g/dL (32.0-36.0); Mean Corpuscular Volume 94.2 fL (80.0-100.0); Monocytes % (auto) 14.4 % (0.0-12.0); Neutrophils # (auto) 4.1 uL; Neutrophils % (auto) 58.7 % (37.0-80.0); Platelet Count (auto) 152 10^3/uL (140-450); Red Blood Cells 3.76 10^6/uL (4.0-5.20); Red Cell Distribution Width 19.8 % (11.8-14.3)
[2018-02-19 07:19] LABS: BUN/Creatinine Ratio 14.2; Calcium 8.1 mg/dL (8.5-10.1); Potassium 4.5 mmol/L (3.5-5.1)
[2018-02-19] MEDS: cefTRIAXone 1GM/50ML D5W 50 ML IV SCH (08:32)
[2018-02-19] MEDS: PANTOPRAZOLE 40 MG/10 ML VIAL IV SCH (08:32)
[2018-02-19] MEDS: CLOPIDOGREL BISULFATE 75 MG TAB PO SCH (08:33)
[2018-02-19] MEDS: AMIODARONE HCL 200 MG TAB PO SCH (08:33)
[2018-02-19] MEDS: SODIUM CHLORIDE 0.9% 1,000 ML IV SCH (08:34)
[2018-02-19] MEDS: ASPirin 81 mg TAB PO SCH (08:36)
[2018-02-19 09:00] VITALS: BP 139/64
[2018-02-19] MEDS: NIFEdipine ER 30 MG TAB PO SCH (11:15)
[2018-02-19] MEDS: SODIUM BICARBONATE 50ML VIAL 50 ML in D5W/SOD CHL 0.45% 1,000 ML IV SCH ×2 (11:30→21:48)
[2018-02-19 11:59] LABS: Urine Bacteria NONE SEEN /hpf (None Seen); Urine Blood Negative /uL (Negative); Urine Specific Gravity 1.019 (1.001-1.035); Urine WBC 1 /hpf (0 - 5)
[2018-02-19 13:00] VITALS: BP 181/95
[2018-02-19 13:04] LABS: Protein, Urine 58.5 mg/dL (0.0-11.9)
[2018-02-19] MEDS: LIDOCAINE 5% TOPICAL PATCH TOP SCH (15:00)
[2018-02-19 17:00] VITALS: BP 134/74
[2018-02-19] MEDS: FERROUS SULFATE 325 MG TAB PO SCH (18:00)
[2018-02-19] MEDS: APIXABAN 5 MG TAB PO SCH (21:48)
[2018-02-19] MEDS: ATORVASTATIN 20 MG TAB PO SCH (21:49)
[2018-02-19] MEDS: CYCLOBENZAPRINE HCL 10 MG TAB PO PRN (21:49)
[2018-02-19 22:00] VITALS: BP 139/82
[2018-02-19] MEDS ORDERED: APIXABAN 5 MG TAB PO SCH (22:00)
[2018-02-20] MEDS: HYDROmorphone HCL 2 MG/ML VL IV PRN ×2 (04:05→21:26)
[2018-02-20 05:08] VITALS: BP 137/82
[2018-02-20 06:25] LABS: Basophils # (auto) 0.1 uL; Eosinophils # (auto) 0.1 uL; Eosinophils % (auto) 1.8 % (0.0-7.0); Hematocrit 33.5 % (36.0-46.0); Hemoglobin 10.5 g/dL (12.2-16.2); Lymphocytes # (auto) 1.6 uL; Lymphocytes % (auto) 25.3 % (10.0-50.0); Mean Corpuscular Hemoglobin 28.3 pg (28.0-32.0); Mean Corpuscular Hgb Conc. 31.5 g/dL (32.0-36.0); Monocytes # (auto) 0.8 uL; Monocytes % (auto) 12.5 % (0.0-12.0); Neutrophils # (auto) 3.7 uL; Neutrophils % (auto) 59.4 % (37.0-80.0); Nucleated Red Blood Cells % 0.2 %; Platelet Count (auto) 144 10^3/uL (140-450); Red Blood Cells 3.72 10^6/uL (4.0-5.20); Red Cell Distribution Width 19.2 % (11.8-14.3); White Blood Cell 6.2 10^3/uL (4.4-10.8)
[2018-02-20 06:45] LABS: Calcium 8.3 mg/dL (8.5-10.1); Phosphorus 3.1 mg/dL (2.5-4.90); Potassium 4.4 mmol/L (3.5-5.1)
[2018-02-20] MEDS: SODIUM BICARBONATE 50ML VIAL 50 ML in D5W/SOD CHL 0.45% 1,000 ML IV SCH (08:30)
[2018-02-20] MEDS: FERROUS SULFATE 325 MG TAB PO SCH ×2 (08:57→18:00)
[2018-02-20 09:00] VITALS: BP 145/90
[2018-02-20] MEDS: AMIODARONE HCL 200 MG TAB PO SCH (09:06)
[2018-02-20] MEDS: NIFEdipine ER 30 MG TAB PO SCH (09:09)
[2018-02-20] MEDS: ASPirin 81 mg TAB PO SCH (09:09)
[2018-02-20] MEDS: CYCLOBENZAPRINE HCL 10 MG TAB PO PRN ×2 (09:10→19:19)
[2018-02-20] MEDS: CLOPIDOGREL BISULFATE 75 MG TAB PO SCH (09:10)
[2018-02-20] MEDS: APIXABAN 5 MG TAB PO SCH ×2 (09:11→21:26)
[2018-02-20] MEDS: PANTOPRAZOLE 40 MG/10 ML VIAL IV SCH (09:11)
[2018-02-20] MEDS: LIDOCAINE 5% TOPICAL PATCH TOP SCH (10:00)
[2018-02-20] MEDS: cefTRIAXone 1GM/50ML D5W 50 ML IV SCH (10:07)
[2018-02-20 13:00] VITALS: BP 146/82
[2018-02-20] MEDS ORDERED: PRAMIPEXOLE DIHYDROCHLORIDE MO 0.25 MG TAB PO ONE (13:15)
[2018-02-20 17:00] VITALS: BP 123/88
[2018-02-20] MEDS: ATORVASTATIN 20 MG TAB PO SCH (21:26)
[2018-02-20] MEDS ORDERED: PRAMIPEXOLE DIHYDROCHLORIDE MO 0.25 MG TAB PO SCH (22:00)
[2018-02-20 22:16] VITALS: BP 159/84
[2018-02-21] MEDS: SODIUM BICARBONATE 50ML VIAL 50 ML in D5W/SOD CHL 0.45% 1,000 ML IV SCH ×3 (00:05→15:21)
[2018-02-21] MEDS: HYDROmorphone HCL 2 MG/ML VL IV PRN (02:26)
[2018-02-21 05:14] VITALS: BP 136/80
[2018-02-21 06:46] LABS: Basophils # (auto) 0 uL; Basophils % (auto) 0.4 % (0.0-2.0); Eosinophils # (auto) 0.2 uL; Hematocrit 33.5 % (36.0-46.0); Hemoglobin 10.5 g/dL (12.2-16.2); Lymphocytes # (auto) 1.3 uL; Lymphocytes % (auto) 24.1 % (10.0-50.0); Mean Corpuscular Hemoglobin 28.4 pg (28.0-32.0); Mean Corpuscular Hgb Conc. 31.4 g/dL (32.0-36.0); Mean Corpuscular Volume 90.5 fL (80.0-100.0); Monocytes # (auto) 0.7 uL; Monocytes % (auto) 12.2 % (0.0-12.0); Neutrophils # (auto) 3.3 uL; Neutrophils % (auto) 59.3 % (37.0-80.0); Nucleated Red Blood Cells % 0.2 %; Platelet Count (auto) 126 10^3/uL (140-450); White Blood Cell 5.5 10^3/uL (4.4-10.8)
[2018-02-21 07:11] LABS: Calcium 8.4 mg/dL (8.5-10.1); Potassium 4.6 mmol/L (3.5-5.1)
[2018-02-21 07:14] LABS: BUN/Creatinine Ratio 12.3
[2018-02-21] MEDS ORDERED: COLCHICINE 0.6 MG CAP PO ONE (07:15)
[2018-02-21] MEDS: FERROUS SULFATE 325 MG TAB PO SCH ×2 (08:27→18:24)
[2018-02-21 09:00] VITALS: BP 149/86
[2018-02-21] MEDS: cefTRIAXone 1GM/50ML D5W 50 ML IV SCH (09:14)
[2018-02-21] MEDS: PANTOPRAZOLE 40 MG/10 ML VIAL IV SCH (09:14)
[2018-02-21] MEDS: CLOPIDOGREL BISULFATE 75 MG TAB PO SCH (09:15)
[2018-02-21] MEDS: ASPirin 81 mg TAB PO SCH (09:15)
[2018-02-21] MEDS: APIXABAN 5 MG TAB PO SCH ×2 (09:15→23:00)
[2018-02-21] MEDS: AMIODARONE HCL 200 MG TAB PO SCH (09:15)
[2018-02-21] MEDS: NIFEdipine ER 30 MG TAB PO SCH (09:16)
[2018-02-21] MEDS: LIDOCAINE 5% TOPICAL PATCH TOP SCH (09:16)
[2018-02-21 13:00] VITALS: BP 154/94
[2018-02-21] MEDS ORDERED: CARISOPRODOL 350 MG TAB PO PRN (14:30)
[2018-02-21] MEDS ORDERED: KETOROLAC TROMETH 60MG/2ML VIAL IM ONE (16:00)
[2018-02-21 16:48] VITALS: BP 155/104
[2018-02-21 22:00] VITALS: BP 155/91
[2018-02-21] MEDS ORDERED: COLCHICINE 0.6 MG CAP PO SCH (22:00)
[2018-02-21] MEDS ORDERED: PRAMIPEXOLE DIHYDROCHLORIDE MO 0.25 MG TAB PO SCH (22:00)
[2018-02-21] MEDS: ATORVASTATIN 20 MG TAB PO SCH (23:00)
[2018-02-21 23:23] VITALS: BP 150/104
[2018-02-22] MEDS: SODIUM BICARBONATE 50ML VIAL 50 ML in D5W/SOD CHL 0.45% 1,000 ML IV SCH ×2 (03:22→13:00)
[2018-02-22 05:00] VITALS: BP 176/92
[2018-02-22 07:16] LABS: Basophils # (auto) 0 uL; Basophils % (auto) 0.5 % (0.0-2.0); Eosinophils # (auto) 0.2 uL; Eosinophils % (auto) 4.9 % (0.0-7.0); Hematocrit 33.4 % (36.0-46.0); Hemoglobin 10.7 g/dL (12.2-16.2); Lymphocytes # (auto) 1.2 uL; Lymphocytes % (auto) 25.4 % (10.0-50.0); Mean Corpuscular Volume 87.6 fL (80.0-100.0); Monocytes # (auto) 0.5 uL; Monocytes % (auto) 9.8 % (0.0-12.0); Neutrophils # (auto) 2.9 uL; Neutrophils % (auto) 59.4 % (37.0-80.0); Nucleated Red Blood Cells % 0.1 %; Platelet Count (auto) 120 10^3/uL (140-450); Red Blood Cells 3.82 10^6/uL (4.0-5.20); Red Cell Distribution Width 18.6 % (11.8-14.3); White Blood Cell 4.8 10^3/uL (4.4-10.8)
[2018-02-22 07:28] LABS: Potassium 3.7 mmol/L (3.5-5.1)
[2018-02-22 07:35] LABS: BUN/Creatinine Ratio 11.2; Calcium 8.4 mg/dL (8.5-10.1)
[2018-02-22] MEDS: FERROUS SULFATE 325 MG TAB PO SCH (07:50)
[2018-02-22 09:00] VITALS: BP 149/75
[2018-02-22] MEDS: PANTOPRAZOLE 40 MG/10 ML VIAL IV SCH (09:05)
[2018-02-22] MEDS: cefTRIAXone 1GM/50ML D5W 50 ML IV SCH (09:05)
[2018-02-22] MEDS: ASPirin 81 mg TAB PO SCH (09:06)
[2018-02-22] MEDS: APIXABAN 5 MG TAB PO SCH (09:07)
[2018-02-22] MEDS: AMIODARONE HCL 200 MG TAB PO SCH (09:07)
[2018-02-22] MEDS: CLOPIDOGREL BISULFATE 75 MG TAB PO SCH (09:07)
[2018-02-22] MEDS: NIFEdipine ER 30 MG TAB PO SCH (09:07)
[2018-02-22] MEDS: LIDOCAINE 5% TOPICAL PATCH TOP SCH (09:07)
[2018-02-22] MEDS ORDERED: COLCHICINE 0.6 MG CAP PO SCH (10:00)
[2018-02-22 13:00] VITALS: BP 191/89
[2018-02-22 14:00] VITALS: BP 145/90
[2018-02-22] MEDS ORDERED: HYDROcodone-ACET 5/325MG TAB PO PRN (14:15)
[2018-02-22] MEDS ORDERED: HYDROmorphone HCL 2 MG/ML VL IV PRN (14:15)
[2018-02-22] MEDS ORDERED: COLC0.6T56 PO (14:20)
== END 2018-02-22 16:43 | disposition home or self-care (01) | DRG 682 ==
LOC: ER 10:47 → OVERFLOW 10:48 → EAST 16:55
PROVIDERS: ADMIT Internal Medicine; ATTEND Internal Medicine
DX: N17.0 Acute kidney failure with tubular necrosis (principal); K66.1 Hemoperitoneum; I50.32 Chronic diastolic (congestive) heart failure; I13.0 Hypertensive heart and chronic kidney disease with heart failure and stage 1 through stage 4 chronic kidney disease, or unspecified chronic kidney disease; I48.92 Unspecified atrial flutter; M62.838 Other muscle spasm; N18.4 Chronic kidney disease, stage 4 (severe); I25.10 Atherosclerotic heart disease of native coronary artery without angina pectoris; K57.30 Diverticulosis of large intestine without perforation or abscess without bleeding; J44.9 Chronic obstructive pulmonary disease, unspecified; I48.0 Paroxysmal atrial fibrillation; I73.9 Peripheral vascular disease, unspecified; M10.9 Gout, unspecified; D63.8 Anemia in other chronic diseases classified elsewhere; M47.816 Spondylosis without myelopathy or radiculopathy, lumbar region; S30.1XXA Contusion of abdominal wall, initial encounter; X58.XXXA Exposure to other specified factors, initial encounter; Y93.89 Activity, other specified; Y92.89 Other specified places as the place of occurrence of the external cause; Z79.01 Long term (current) use of anticoagulants; Y99.8 Other external cause status; Z87.891 Personal history of nicotine dependence; I25.2 Old myocardial infarction; Z83.3 Family history of diabetes mellitus; Z86.73 Personal history of transient ischemic attack (TIA), and cerebral infarction without residual deficits; Z95.810 Presence of automatic (implantable) cardiac defibrillator; Z95.820 Peripheral vascular angioplasty status with implants and grafts; Z88.8 Allergy status to other drugs, medicaments and biological substances; Z86.718 Personal history of other venous thrombosis and embolism
CPT/HCPCS: 36415; 71045; 74176; 76775; 80048; 80053; 81001; 82150; 82570; 83690; 83735; 84100; 84156; 84300; 84484; 85025; 87081; 87086; 93926; 94761; 96361; 96374; 96375; C9113; G0378; J0696; J1885; J2405

== ENCOUNTER → 2018-03-07 | Outpatient (CLI) | payer OTHER ==
[~2018-03-07] MED LIST changes: +COLC0.6T56 PO
[2018-03-07 14:27] LABS: Urine Blood Negative /uL (Negative); Urine Specific Gravity 1.017 (1.001-1.035)
[2018-03-07 14:45] LABS: Basophils # (auto) 0 uL; Eosinophils # (auto) 0.1 uL; Lymphocytes # (auto) 1.5 uL; Monocytes # (auto) 0.4 uL; Platelet Count (auto) 59 10^3/uL (140-450); Red Cell Distribution Width 19.7 % (11.8-14.3)
[2018-03-07 14:47] LABS: Basophils % (auto) 0.7 % (0.0-2.0); Eosinophils % (auto) 2.8 % (0.0-7.0); Hematocrit 41.7 % (36.0-46.0); Lymphocytes % (auto) 32.4 % (10.0-50.0); Mean Corpuscular Hemoglobin 28.2 pg (28.0-32.0); Mean Corpuscular Hgb Conc. 31.1 g/dL (32.0-36.0); Mean Corpuscular Volume 90.8 fL (80.0-100.0); Monocytes % (auto) 8.6 % (0.0-12.0); Neutrophils # (auto) 2.6 uL; Neutrophils % (auto) 55.5 % (37.0-80.0); Nucleated Red Blood Cells % 0.1 %; Red Blood Cells 4.59 10^6/uL (4.0-5.20); White Blood Cell 4.7 10^3/uL (4.4-10.8)
[2018-03-07 15:35] LABS: Creatinine, Urine 178 mg/dL (30.0-125.0); Protein, Urine 61.5 mg/dL (0.0-11.9)
[2018-03-07 15:51] LABS: Albumin 3.5 g/dL (3.4-5.0); BUN/Creatinine Ratio 16.9; Calcium 8.9 mg/dL (8.5-10.1); Phosphorus 3.3 mg/dL (2.5-4.90); Potassium 4.4 mmol/L (3.5-5.1); Uric Acid 7.7 mg/dL (2.6-6.0)
== END | disposition home or self-care (01) ==
LOC: LAB 14:06
PROVIDERS: ATTEND Internal Medicine Nephrology
DX: I12.9 Hypertensive chronic kidney disease with stage 1 through stage 4 chronic kidney disease, or unspecified chronic kidney disease (principal); N18.3 Chronic kidney disease, stage 3 (moderate); D63.1 Anemia in chronic kidney disease; M10.9 Gout, unspecified; R80.9 Proteinuria, unspecified
CPT/HCPCS: 36415; 80069; 81003; 82306; 82570; 83970; 84156; 84550; 85025

== ENCOUNTER → 2018-04-02 | Outpatient (CLI) | payer OTHER | END | disposition home or self-care (01) | LOC: LAB 09:28 | PROVIDERS: ATTEND Internal Medicine | DX: Z01.812 Encounter for preprocedural laboratory examination (principal) | CPT/HCPCS: 36415; 82565; 84520 ==

== ENCOUNTER → 2018-05-09 | Outpatient (CLI) | payer OTHER, MEDICARE ==
[2018-05-09 11:12] LABS: Eosinophils # (auto) 0.2 uL; Hemoglobin 15.1 g/dL (12.2-16.2); Monocytes # (auto) 0.5 uL; Neutrophils # (auto) 2.6 uL
[2018-05-09 11:15] LABS: Urine Bacteria NONE SEEN /hpf (None Seen); Urine Blood Negative /uL (Negative); Urine Specific Gravity 1.017 (1.001-1.035); Urine WBC 2 /hpf (0 - 5)
[2018-05-09 11:41] LABS: Albumin 3.5 g/dL (3.4-5.0); BUN/Creatinine Ratio 20.3; Phosphorus 4.6 mg/dL (2.5-4.90); Uric Acid 5.5 mg/dL (2.6-6.0)
[2018-05-09 11:47] LABS: Basophils # (auto) 0.1 uL; Hematocrit 48.2 % (36.0-46.0); Lymphocytes # (auto) 1.9 uL; Lymphocytes % (auto) 35.8 % (10.0-50.0); Mean Corpuscular Hemoglobin 28.2 pg (28.0-32.0); Mean Corpuscular Hgb Conc. 31.2 g/dL (32.0-36.0); Mean Corpuscular Volume 90.2 fL (80.0-100.0); Monocytes % (auto) 9.1 % (0.0-12.0); Neutrophils % (auto) 50.1 % (37.0-80.0); Nucleated Red Blood Cells % 0.1 %; Platelet Count (auto) 81 10^3/uL (140-450); Red Blood Cells 5.35 10^6/uL (4.0-5.20); Red Cell Distribution Width 18.6 % (11.8-14.3); White Blood Cell 5.2 10^3/uL (4.4-10.8)
[2018-05-09 13:35] LABS: Potassium 6.7 mmol/L (3.5-5.1)
== END | disposition home or self-care (01) ==
LOC: LAB 10:39
PROVIDERS: ATTEND Internal Medicine Nephrology
DX: I13.0 Hypertensive heart and chronic kidney disease with heart failure and stage 1 through stage 4 chronic kidney disease, or unspecified chronic kidney disease (principal); I50.9 Heart failure, unspecified; N18.3 Chronic kidney disease, stage 3 (moderate); E21.3 Hyperparathyroidism, unspecified; M10.9 Gout, unspecified; D63.1 Anemia in chronic kidney disease; R80.9 Proteinuria, unspecified; E55.9 Vitamin D deficiency, unspecified
CPT/HCPCS: 36415; 80069; 81001; 82306; 82570; 83970; 84156; 84550; 85025

== ENCOUNTER → 2018-05-15 | Outpatient (CLI) | payer OTHER, MEDICARE ==
[2018-05-15 15:56] LABS: Basophils # (auto) 0 uL; Eosinophils # (auto) 0.2 uL; Hemoglobin 13.7 g/dL (12.2-16.2); Lymphocytes # (auto) 1.8 uL; Monocytes # (auto) 0.4 uL; Neutrophils # (auto) 2.3 uL; Nucleated Red Blood Cells % 0.2 %; White Blood Cell 4.7 10^3/uL (4.4-10.8)
[2018-05-15 16:00] LABS: Basophils % (auto) 0.7 % (0.0-2.0); Eosinophils % (auto) 3.3 % (0.0-7.0); Hematocrit 43.4 % (36.0-46.0); Lymphocytes % (auto) 38.8 % (10.0-50.0); Mean Corpuscular Hemoglobin 28.2 pg (28.0-32.0); Mean Corpuscular Hgb Conc. 31.6 g/dL (32.0-36.0); Mean Corpuscular Volume 89.5 fL (80.0-100.0); Monocytes % (auto) 8.7 % (0.0-12.0); Neutrophils % (auto) 48.5 % (37.0-80.0); Platelet Count (auto) 59 10^3/uL (140-450); Red Blood Cells 4.85 10^6/uL (4.0-5.20); Red Cell Distribution Width 18.3 % (11.8-14.3)
[2018-05-15 16:06] LABS: Albumin 3.2 g/dL (3.4-5.0); BUN/Creatinine Ratio 21.4; Calcium 8.1 mg/dL (8.5-10.1); Phosphorus 4.2 mg/dL (2.5-4.90); Potassium 4.5 mmol/L (3.5-5.1)
[2018-05-15 16:47] LABS: Free T4 (Free Thyroxine) 2.21 ng/dL (0.89-1.76)
[2018-05-15 16:48] LABS: Free T3 3.84 pg/mL (2.3-4.2); T3 Total 1.39 ng/mL (0.60-1.81)
== END | disposition home or self-care (01) ==
LOC: LAB 15:10
PROVIDERS: ATTEND Internal Medicine Nephrology
DX: N18.3 Chronic kidney disease, stage 3 (moderate) (principal); D63.1 Anemia in chronic kidney disease; R94.6 Abnormal results of thyroid function studies
CPT/HCPCS: 36415; 80069; 84439; 84480; 84481; 85025

== ENCOUNTER 2018-05-17 21:12 | Inpatient (IN) | payer MEDICARE, OTHER ==
[~2018-05-17] VITALS: Ht 172.7 cm; Wt 111.6 kg
[2018-05-17 22:30] LABS: Basophils # (auto) 0.1 uL; Basophils % (auto) 1.1 % (0.0-2.0); Eosinophils # (auto) 0.2 uL; Eosinophils % (auto) 3.1 % (0.0-7.0); Hematocrit 43.1 % (36.0-46.0); Hemoglobin 13.8 g/dL (12.2-16.2); Lymphocytes # (auto) 1.9 uL; Lymphocytes % (auto) 35.7 % (10.0-50.0); Mean Corpuscular Hemoglobin 28.8 pg (28.0-32.0); Mean Corpuscular Volume 89.7 fL (80.0-100.0); Monocytes # (auto) 0.5 uL; Monocytes % (auto) 9.7 % (0.0-12.0); Neutrophils # (auto) 2.6 uL; Neutrophils % (auto) 50.4 % (37.0-80.0); Nucleated Red Blood Cells % 0.2 %; Platelet Count (auto) 118 10^3/uL (140-450); Red Blood Cells 4.81 10^6/uL (4.0-5.20); Red Cell Distribution Width 17.6 % (11.8-14.3); White Blood Cell 5.2 10^3/uL (4.4-10.8)
[2018-05-17 22:45] LABS: Alanine Aminotransferase 34 U/L (13-56); Albumin 3.2 g/dL (3.4-5.0); Anion Gap 7 (5-15); Aspartate Aminotransferase 36 U/L (15-37); BUN/Creatinine Ratio 21.8; Blood Urea Nitrogen 49 mg/dL (7-18); Calcium 7.8 mg/dL (8.5-10.1); Carbon Dioxide 19 mmol/L (21-32); Chloride 116 mmol/L (98-107); GFR African American 28 mL/min; GFR Non-African American 23 mL/min; Glucose 75 mg/dL (74-106); Potassium 4.5 mmol/L (3.5-5.1); Sodium 142 mmol/L (136-145)
[2018-05-17] MEDS ORDERED: DIGOXIN (250MCG/ML) 2 ML AMPULE IV ONE (22:45)
[2018-05-17 23:05] LABS: Alkaline Phosphatase 89 U/L (45-117); Bilirubin, Total 0.2 mg/dL (0.2-1.0); Total Protein 7.6 g/dL (6.4-8.2)
[2018-05-17 23:13] LABS: Partial Thromboplastin Time 64.4 sec (23.78-33.04); Prothrombin Time 45.6 sec (9.27-12.13)
[2018-05-17 23:18] LABS: INR 4.65 (0.9-1.15)
[2018-05-17] MEDS ORDERED: cefTRIAXone 1GM/50ML D5W 50 ML IV ONE (23:22)
[2018-05-17] MEDS ORDERED: ONDANSETRON HCL 4 MG/2 ML VIAL ONE (23:22)
[2018-05-18] VITALS (8 sets, daily range): BP systolic 114–148; BP diastolic 62–81
[2018-05-18] MEDS ORDERED: DILTIAZEM HCL 25 MG/5 ML VIAL IV ONE
[2018-05-18] MEDS ORDERED: HYDROcodone-ACET 5/325MG TAB PO PRN (02:30)
[2018-05-18] MEDS ORDERED: ALBUTEROL SULF 2.5 MG/0.5ML(0.5%) NEB SOLN NEB PRN (02:30)
[2018-05-18] MEDS ORDERED: ACETAMINOPHEN 500 MG TAB PO PRN (02:30)
[2018-05-18] MEDS ORDERED: MORPHINE SULFATE 10 MG/ML INJ 1ML SDV IV PRN (02:30)
[2018-05-18] MEDS ORDERED: ONDANSETRON HCL 4 MG/2 ML VIAL IV PRN (02:30)
[2018-05-18] MEDS ORDERED: AMIODARONE HCL 200 MG TAB PO ONE (03:30)
--- NOTE | 2018-05-18 04:30 | NUR ---
Telemetry admit from ER KINDRATRISTEN Paz admitted to Telemetry unit. Patient oriented to Madelin Hernandez RN primary RN, unit, room, bed, and unit policies regarding patient care and visiting hours. Patient now on continuous telemetry monitoring, tele box # 35 and telemetry reading on arrival to unit is 104 afib. Patient placed on bedside oxygen 2lnc, weighed by bedscale and encouraged to call if they need something. All questions and concerns addressed, patient verbalized understanding. Patient alert x4, ambulatory, skin intact. No complaints of sob or chest pain at this time. Note:
[2018-05-18] MEDS: FAMOTIDINE 20 MG TAB PO SCH (06:51)
[2018-05-18] MEDS: GABAPENTIN 300 MG CAP PO SCH ×2 (06:52→14:34)
[2018-05-18 07:14] LABS: Urine Bacteria FEW /hpf (None Seen); Urine Blood Negative /uL (Negative); Urine WBC 2 /hpf (0 - 5)
[2018-05-18 07:29] LABS: Basophils # (auto) 0 uL; Basophils % (auto) 0.9 % (0.0-2.0); Eosinophils # (auto) 0.2 uL; Eosinophils % (auto) 4.1 % (0.0-7.0); Hematocrit 40.4 % (36.0-46.0); Hemoglobin 12.9 g/dL (12.2-16.2); Lymphocytes # (auto) 1.8 uL; Lymphocytes % (auto) 39.4 % (10.0-50.0); Mean Corpuscular Hgb Conc. 31.9 g/dL (32.0-36.0); Mean Corpuscular Volume 87.7 fL (80.0-100.0); Monocytes # (auto) 0.6 uL; Monocytes % (auto) 12.4 % (0.0-12.0); Neutrophils # (auto) 1.9 uL; Neutrophils % (auto) 43.2 % (37.0-80.0); Nucleated Red Blood Cells % 0.2 %; Platelet Count (auto) 76 10^3/uL (140-450); Red Blood Cells 4.61 10^6/uL (4.0-5.20); Red Cell Distribution Width 18.3 % (11.8-14.3); White Blood Cell 4.5 10^3/uL (4.4-10.8)
[2018-05-18 07:45] LABS: Albumin 2.7 g/dL (3.4-5.0); BUN/Creatinine Ratio 22.4; Calcium 8.1 mg/dL (8.5-10.1); Potassium 4.5 mmol/L (3.5-5.1)
[2018-05-18 07:48] LABS: Bilirubin, Total 0.2 mg/dL (0.2-1.0); Total Protein 6.3 g/dL (6.4-8.2)
[2018-05-18 07:52] LABS: Partial Thromboplastin Time 61.6 sec (23.78-33.04); Prothrombin Time 43.4 sec (9.27-12.13)
[2018-05-18 07:54] LABS: INR 4.41 (0.9-1.15)
--- NOTE | 2018-05-18 07:59 | NUR ---
CRITICAL INR INR 4.41 TRENDING DOWN FROM PREVIOUS RESULT, WILL NOTIFY
--- NOTE | 2018-05-18 09:00 | NUR ---
Respiratory note: PATIENT ASSESSED FOR PRN MED-NEB, HE DENIES NEED AT THIS TIME AND DOES NOT APPEAR TO BE IN ANY ACUTE RESPIRATORY DISTRESS. HE WAS INSTRUCTED TO CALL FOR RT IF HE FELT THE NEED FOR TX AT A LATER TIME. SPO2 95% 2LPM NASAL CANNULA.
[2018-05-18] MEDS: AMIODARONE HCL 200 MG TAB PO SCH (09:47)
[2018-05-18] MEDS: CLOPIDOGREL BISULFATE 75 MG TAB PO SCH (09:47)
[2018-05-18] MEDS: METOPROLOL TARTRATE 25 MG TAB PO SCH ×2 (09:48→21:11)
--- NOTE | 2018-05-18 11:50 | NUR ---
CARDIOLOGY CONSULT PT SEEN BY DR. BHATT.
--- NOTE | 2018-05-18 12:04 | NUR ---
PT SEEN BY DR. COUCH MADE AWARE OF PT'S ELEVATED INR, PT ON WARFARIN. AWARE PT IS COMPLAINING OF THROAT PAIN HE ORDERED LOSENGES.
[2018-05-18] MEDS ORDERED: THROAT LOZENGES(CEPASTAT) MT PRN (16:00)
--- NOTE | 2018-05-18 19:35 | NUR ---
Opening Shift Note Assumed care of patient, awake and alert x4. No S/S of distress/SOB or pain. Instructed on POC and to call for assistance PRN, will continue to monitor for changes Q1hr and PRN.
--- NOTE | 2018-05-18 19:47 | NUR ---
Respiratory note: ASSESSED PT FOR PRN TX PT WAS AWAKE AND ALERT NO RESP DISTRESS NOTED.HR 56, RR 16, SPO2 97% ON 2L N/C. BS ARE CLEAR. PT KNOWS TO HAVE RT PAGED IF TX IS NEEDED.
[2018-05-18] MEDS: PREGABALIN 25 MG CAP PO SCH (21:10)
[2018-05-18] MEDS: ATORVASTATIN 20 MG TAB PO SCH (21:10)
[2018-05-18] MEDS ORDERED: PRAMIPEXOLE DIHYDROCHLORIDE MO 0.25 MG TAB PO SCH (22:00)
[2018-05-19 05:00] VITALS: BP 144/83
[2018-05-19] MEDS: FAMOTIDINE 20 MG TAB PO SCH (05:52)
[2018-05-19 06:45] LABS: Partial Thromboplastin Time 64.4 sec (23.78-33.04); Prothrombin Time 43.6 sec (9.27-12.13)
[2018-05-19 06:47] LABS: Albumin 2.9 g/dL (3.4-5.0); Calcium 8.5 mg/dL (8.5-10.1); Potassium 4.9 mmol/L (3.5-5.1)
[2018-05-19 06:48] LABS: INR 4.43 (0.9-1.15)
--- NOTE | 2018-05-19 06:50 | NUR ---
Critical INR Hospitalist Fareed notified of critical INR, no new orders received.
[2018-05-19 06:53] LABS: BUN/Creatinine Ratio 21.1; Bilirubin, Total 0.3 mg/dL (0.2-1.0); Total Protein 6.6 g/dL (6.4-8.2)
[2018-05-19] MEDS: PREGABALIN 25 MG CAP PO SCH ×2 (09:04→22:21)
[2018-05-19] MEDS: METOPROLOL TARTRATE 25 MG TAB PO SCH ×2 (09:05→22:00)
[2018-05-19] MEDS: CLOPIDOGREL BISULFATE 75 MG TAB PO SCH (09:05)
[2018-05-19] MEDS: AMIODARONE HCL 200 MG TAB PO SCH (09:05)
[2018-05-19 09:39] VITALS: BP 165/76
[2018-05-19] MEDS ORDERED: VANCOMYCIN HCL 1000 MG VL ONE (11:52)
--- NOTE | 2018-05-19 12:20 | NUR ---
Pt seen by Dr. Vera
[2018-05-19 12:41] VITALS: BP 154/90
--- NOTE | 2018-05-19 15:55 | NUR ---
ELEVATED BP PAGED DR. COUCH FOR BP 174/93MMHG, HE ORDERED CLONIDINE 0.2MG PO Q6HRS PRN FOR SB>150.
[2018-05-19] MEDS ORDERED: cloNIDine HCL 0.1 MG TAB PO PRN (16:00)
[2018-05-19 17:00] VITALS: BP 174/93
--- NOTE | 2018-05-19 19:50 | NUR ---
Opening Shift Note Assumed care of patient, awake and alertx4. No S/S of distress/SOB or pain, patient does complain of tingling electrical sensation on right leg, Dr. Hope has just placed order for mirapex, administered as ordered. Instructed on POC and to call for assistance PRN, will continue to monitor for changes Q1hr and PRN.
[2018-05-19] MEDS ORDERED: PRAMIPEXOLE DIHYDROCHLORIDE MO 0.25 MG TAB PO SCH (20:00)
--- NOTE | 2018-05-19 21:20 | NUR ---
Respiratory note: PT ASSESSED FOR PRN MED NEB TX. HR 60,RR16, SPO2 97% ON R/A, BS CLEAR T/O. NO SIGNS OF ANY RESPIRATORY DISTRESS NOTED. ADVISED PT TO PLEASE CALL IF NEEDED.
[2018-05-19 22:00] VITALS: BP 127/87
[2018-05-19] MEDS: ATORVASTATIN 20 MG TAB PO SCH (22:21)
[2018-05-20 05:00] VITALS: BP 150/74
[2018-05-20] MEDS: FAMOTIDINE 20 MG TAB PO SCH (06:36)
--- NOTE | 2018-05-20 06:36 | NUR ---
PT ASSESSED FOR PRN HHN TX. PT IS ON ROOM AIR,. SPO2 98%, HR 60, RR 16. NO S/S OF RESPIRATORY DISTRESS. PT AWARE TO HAVE RT PAGED IF BREATHING TX IS INDICATED.
--- NOTE | 2018-05-20 08:00 | NUR ---
Opening Shift Note Assumed care of patient, awake, alert and oriented X4. No S/S of distress/SOB or pain. Tele# 35, A-Fib @ 62 BPM. IV to left antecubital, 18 gauge, patent and saline locked. Instructed on POC and to call for assist PRN, verbalized understanding. Bed locked, in lowest position, call light within reach, will continue to monitor for changes Q1hr and PRN.
[2018-05-20 08:20] LABS: INR 2.82 (0.9-1.15); Prothrombin Time 28.5 sec (9.27-12.13)
[2018-05-20 09:30] VITALS: BP 151/97
[2018-05-20] MEDS: AMIODARONE HCL 200 MG TAB PO SCH (10:13)
[2018-05-20] MEDS: METOPROLOL TARTRATE 25 MG TAB PO SCH (10:14)
[2018-05-20] MEDS: PREGABALIN 25 MG CAP PO SCH (10:14)
[2018-05-20] MEDS: CLOPIDOGREL BISULFATE 75 MG TAB PO SCH (10:15)
--- NOTE | 2018-05-20 11:37 | NUR ---
ROUNDS Dr Mandi Vera at bedside for rounds, new orders received and followed through. Patient updated on plan of care, verbalized understanding.
[2018-05-20 12:52] VITALS: BP 160/89
[2018-05-20 15:30] VITALS: BP 160/89
[2018-05-20] MEDS ORDERED: WARFARIN SODIUM 1 MG TAB PO ONE (17:00)
[2018-05-20 17:10] VITALS: BP 152/92
== END 2018-05-20 17:00 | disposition home or self-care (01) | DRG 683 ==
LOC: EDBD 21:12 → ER 21:12 → TELE-WESTW 05-18 03:14
PROVIDERS: ADMIT Nurse Practitioner Family; ATTEND Family Medicine
DX: N17.9 Acute kidney failure, unspecified (principal); D68.9 Coagulation defect, unspecified; I50.32 Chronic diastolic (congestive) heart failure; I13.0 Hypertensive heart and chronic kidney disease with heart failure and stage 1 through stage 4 chronic kidney disease, or unspecified chronic kidney disease; J98.11 Atelectasis; R07.89 Other chest pain; E05.90 Thyrotoxicosis, unspecified without thyrotoxic crisis or storm; E78.00 Pure hypercholesterolemia, unspecified; E78.5 Hyperlipidemia, unspecified; F17.200 Nicotine dependence, unspecified, uncomplicated; G25.81 Restless legs syndrome; G57.91 Unspecified mononeuropathy of right lower limb; I25.119 Atherosclerotic heart disease of native coronary artery with unspecified angina pectoris; I48.91 Unspecified atrial fibrillation; I67.2 Cerebral atherosclerosis; I73.9 Peripheral vascular disease, unspecified; K21.9 Gastro-esophageal reflux disease without esophagitis; E66.01 Morbid (severe) obesity due to excess calories; M17.10 Unilateral primary osteoarthritis, unspecified knee; M10.9 Gout, unspecified; M47.816 Spondylosis without myelopathy or radiculopathy, lumbar region; M77.9 Enthesopathy, unspecified; N18.3 Chronic kidney disease, stage 3 (moderate); I25.2 Old myocardial infarction; Z79.02 Long term (current) use of antithrombotics/antiplatelets; Z79.899 Other long term (current) drug therapy; Z82.3 Family history of stroke; Z82.49 Family history of ischemic heart disease and other diseases of the circulatory system; Z83.3 Family history of diabetes mellitus; Z86.718 Personal history of other venous thrombosis and embolism; Z86.73 Personal history of transient ischemic attack (TIA), and cerebral infarction without residual deficits; Z95.810 Presence of automatic (implantable) cardiac defibrillator; Z95.820 Peripheral vascular angioplasty status with implants and grafts; Z68.37 Body mass index [BMI] 37.0-37.9, adult; Z88.6 Allergy status to analgesic agent; Z79.51 Long term (current) use of inhaled steroids; Z90.89 Acquired absence of other organs; Z83.511 Family history of glaucoma; J44.9 Chronic obstructive pulmonary disease, unspecified
CPT/HCPCS: 36415; 71046; 80053; 81001; 83880; 84443; 84484; 85025; 85379; 85610; 85730; 93005; 93970; 96374; 96375; G0378; J0696; J2405

== ENCOUNTER → 2018-05-27 | Outpatient (CLI) | payer OTHER | END | disposition home or self-care (01) | LOC: XY 09:28 | PROVIDERS: ATTEND Internal Medicine | DX: I73.9 Peripheral vascular disease, unspecified (principal) | CPT/HCPCS: 93925 ==

== ENCOUNTER → 2018-05-29 | Outpatient (CLI) | payer OTHER ==
[2018-05-29 15:30] LABS: Free T4 (Free Thyroxine) 1.94 ng/dL (0.89-1.76)
[2018-05-29 15:31] LABS: T3 Total 1.7 ng/mL (0.60-1.81)
== END | disposition home or self-care (01) ==
LOC: LAB 13:49
PROVIDERS: ATTEND Physician Assistant
DX: E04.1 Nontoxic single thyroid nodule (principal); I73.9 Peripheral vascular disease, unspecified; G62.9 Polyneuropathy, unspecified; I13.0 Hypertensive heart and chronic kidney disease with heart failure and stage 1 through stage 4 chronic kidney disease, or unspecified chronic kidney disease; N18.3 Chronic kidney disease, stage 3 (moderate); I50.42 Chronic combined systolic (congestive) and diastolic (congestive) heart failure
CPT/HCPCS: 84439; 84480

== ENCOUNTER → 2018-07-04 | Outpatient (CLI) | payer OTHER, MEDICARE ==
[2018-07-04 11:09] LABS: Basophils # (auto) 0 uL; Eosinophils # (auto) 0.2 uL; Lymphocytes # (auto) 1.5 uL; Monocytes # (auto) 0.5 uL
[2018-07-04 11:15] LABS: Basophils % (auto) 0.8 % (0.0-2.0); Hematocrit 46.1 % (36.0-46.0); Hemoglobin 14.6 g/dL (12.2-16.2); Lymphocytes % (auto) 30.4 % (10.0-50.0); Mean Corpuscular Hemoglobin 27.6 pg (28.0-32.0); Mean Corpuscular Hgb Conc. 31.6 g/dL (32.0-36.0); Mean Corpuscular Volume 87.4 fL (80.0-100.0); Neutrophils # (auto) 2.7 uL; Neutrophils % (auto) 54.8 % (37.0-80.0); Nucleated Red Blood Cells % 0.1 %; Red Blood Cells 5.27 10^6/uL (4.0-5.20); Red Cell Distribution Width 17.4 % (11.8-14.3); White Blood Cell 4.9 10^3/uL (4.4-10.8)
[2018-07-04 12:01] LABS: Albumin 3.3 g/dL (3.4-5.0); BUN/Creatinine Ratio 21.2; Calcium 8.7 mg/dL (8.5-10.1); Phosphorus 3.7 mg/dL (2.5-4.90); Potassium 4.7 mmol/L (3.5-5.1)
[2018-07-04 12:10] LABS: Protein, Urine 69.3 mg/dL (0.0-11.9)
[2018-07-04 12:51] LABS: Platelet Count (auto) 43 10^3/uL (140-450)
== END | disposition home or self-care (01) ==
LOC: LAB 10:19
PROVIDERS: ATTEND Internal Medicine Nephrology
DX: R80.9 Proteinuria, unspecified (principal); E78.5 Hyperlipidemia, unspecified; I13.0 Hypertensive heart and chronic kidney disease with heart failure and stage 1 through stage 4 chronic kidney disease, or unspecified chronic kidney disease; D63.1 Anemia in chronic kidney disease; I50.9 Heart failure, unspecified; N18.3 Chronic kidney disease, stage 3 (moderate)
CPT/HCPCS: 36415; 80061; 80069; 82570; 84156; 85025

== ENCOUNTER → 2018-08-25 | Outpatient (CLI) | payer OTHER ==
[~2018-08-25] VITALS: Ht 177.8 cm; Wt 104.3 kg
[~2018-08-25] MED LIST changes: +ALLO100T PO; +CHLO50TA PO; +CLOP75TA41 PO; +FEBU40TA PO; +FERR-7 PO; +GABA-339 PO; +HYDR-4683 PO; +IPRAAER6 IN; +METO25TA5 PO; +WARF7.5T20 PO
[2018-08-25 11:12] LABS: Basophils # (auto) 0.1 uL; Basophils % (auto) 1.4 % (0.0-2.0); Eosinophils # (auto) 0.1 uL; Eosinophils % (auto) 2.7 % (0.0-7.0); Hematocrit 50.2 % (36.0-46.0); Hemoglobin 16.1 g/dL (12.2-16.2); Lymphocytes # (auto) 1.6 uL; Lymphocytes % (auto) 30.2 % (10.0-50.0); Mean Corpuscular Volume 87.5 fL (80.0-100.0); Monocytes # (auto) 0.4 uL; Monocytes % (auto) 7.5 % (0.0-12.0); Neutrophils # (auto) 3.1 uL; Neutrophils % (auto) 58.2 % (37.0-80.0); Nucleated Red Blood Cells % 0.1 %; Platelet Count (auto) 146 10^3/uL (140-450); Red Blood Cells 5.74 10^6/uL (4.0-5.20); White Blood Cell 5.3 10^3/uL (4.4-10.8)
[2018-08-25 11:35] LABS: INR 1.33 (0.9-1.15); Partial Thromboplastin Time 36.3 sec (23.78-33.04)
[2018-08-25 12:24] LABS: Albumin 3.8 g/dL (3.4-5.0); BUN/Creatinine Ratio 22.8; Calcium 8.9 mg/dL (8.5-10.1); Potassium 4.6 mmol/L (3.5-5.1)
[2018-08-25 12:26] LABS: Bilirubin, Total 0.4 mg/dL (0.2-1.0); Total Protein 7.9 g/dL (6.4-8.2)
== END | disposition home or self-care (01) ==
LOC: CATH 10:57 → EDSTATUS 08-27 12:03
PROVIDERS: ATTEND Internal Medicine
DX: I73.9 Peripheral vascular disease, unspecified (principal); I13.0 Hypertensive heart and chronic kidney disease with heart failure and stage 1 through stage 4 chronic kidney disease, or unspecified chronic kidney disease; N18.3 Chronic kidney disease, stage 3 (moderate); I50.32 Chronic diastolic (congestive) heart failure
CPT/HCPCS: 36415; 80053; 85025; 85610; 85730

== ENCOUNTER → 2018-09-19 | Outpatient (CLI) | payer OTHER, MEDICARE ==
[~2018-09-19] MED LIST changes: -ALBUAER3 IN; -AMIO200T33 PO; -ATOR20TA50 PO; -CHOL20007 PO; -COLC0.6T56 PO; -OMEP20CA74 PO
[2018-09-19 16:27] LABS: Urine Blood Negative /uL (Negative); Urine Specific Gravity 1.014 (1.001-1.035)
[2018-09-19 16:39] LABS: Basophils # (auto) 0 uL; Basophils % (auto) 0.9 % (0.0-2.0); Eosinophils # (auto) 0.1 uL; Hematocrit 49.4 % (36.0-46.0); Hemoglobin 15.9 g/dL (12.2-16.2); Lymphocytes # (auto) 0.7 uL; Lymphocytes % (auto) 14.5 % (10.0-50.0); Mean Corpuscular Hemoglobin 28.5 pg (28.0-32.0); Mean Corpuscular Hgb Conc. 32.1 g/dL (32.0-36.0); Mean Corpuscular Volume 88.8 fL (80.0-100.0); Monocytes # (auto) 0.6 uL; Monocytes % (auto) 12.4 % (0.0-12.0); Neutrophils # (auto) 3.5 uL; Neutrophils % (auto) 70.2 % (37.0-80.0); Nucleated Red Blood Cells % 0.2 %; Platelet Count (auto) 69 10^3/uL (140-450); Red Blood Cells 5.57 10^6/uL (4.0-5.20); Red Cell Distribution Width 18.3 % (11.8-14.3); White Blood Cell 5.1 10^3/uL (4.4-10.8)
[2018-09-19 16:43] LABS: Potassium 4.2 mmol/L (3.5-5.1)
[2018-09-19 16:48] LABS: Albumin 3.6 g/dL (3.4-5.0); BUN/Creatinine Ratio 16.7; Calcium 8.4 mg/dL (8.5-10.1); Phosphorus 2.9 mg/dL (2.5-4.90); Uric Acid 7.4 mg/dL (2.6-6.0)
[2018-09-19 16:52] LABS: Creatinine, Urine 66 mg/dL (30.0-125.0); Protein, Urine 115.9 mg/dL (0.0-11.9)
== END | disposition home or self-care (01) ==
LOC: LAB 15:55
PROVIDERS: ATTEND Internal Medicine Nephrology
DX: I13.0 Hypertensive heart and chronic kidney disease with heart failure and stage 1 through stage 4 chronic kidney disease, or unspecified chronic kidney disease (principal); I50.9 Heart failure, unspecified; D63.1 Anemia in chronic kidney disease; N18.3 Chronic kidney disease, stage 3 (moderate); E21.3 Hyperparathyroidism, unspecified; N39.0 Urinary tract infection, site not specified; M10.9 Gout, unspecified; R80.9 Proteinuria, unspecified; E55.9 Vitamin D deficiency, unspecified; E78.5 Hyperlipidemia, unspecified
CPT/HCPCS: 36415; 80061; 80069; 81003; 82306; 82570; 83970; 84156; 84550; 85025